=== PATIENT | male | born 1945 | race Caucasian/White ===

== ENCOUNTER → 2024-05-22 11:38 | Outpatient (REF) | payer BC, SELFPAY ==
[2024-05-24 22:14] LABS: PSA, Ultrasensitive 4.95 ng/mL (0.00-4.00)
== END ==
LOC: OLABWIL 11:38
PROVIDERS: ATTENDING PHYSICIAN Specialist
DX: C61 Malignant neoplasm of prostate (principal)
CPT/HCPCS: 36415; 84153

== ENCOUNTER → 2024-11-20 11:14 | Outpatient (REF) | payer BC, SELFPAY ==
[2024-11-20 12:30] LABS: PSA, Total - Diagnostic 27.70 ng/ml (0.0-4.0)
== END ==
LOC: OLABWIL 11:14
PROVIDERS: ATTENDING PHYSICIAN Specialist
DX: C61 Malignant neoplasm of prostate (principal)
CPT/HCPCS: 36415; 84153

== ENCOUNTER 2024-12-26 14:26 | Inpatient (IN) | payer MEDICARE, BC, SELFPAY ==
[2024-12-26] VITALS (9 sets, daily range): BP systolic 130–169; BP diastolic 65–93; BMI 33.1; BMI 31.1
--- NOTE | 2024-12-26 07:34 | ED.GENMED ---
History of Present Illness
General
Chief Complaint: Abdominal Pain
Time Seen by Provider: 12/26/24 07:10
History of Present Illness
History of Present Illness:
Patient is a 79-year-old man with history of hypertension, umbilical hernia presenting to the emergency department abdominal pain. Patient states that 5 days ago he developed nausea vomiting. Did resolve 2 days ago but then yesterday came back.
Since then he is also had right lower quad abdominal pain. He does have an umbilical hernia. He has never seen surgery regarding it. He does state that soft and reducible when he lies flat. No skin changes overlying the hernia. He denies any
fevers chills. His last bowel movement was yesterday. He has not passed gas since yesterday. No prior abdominal surgeries. No urinary symptoms. No back pain. No chest pain.
Phy Exam
Physical Exam
Physical Exam:
GENERAL: in no acute distress
HEENT: normocephalic, extraocular movements intact, moist oral mucosa
NECK: normal inspection
RESPIRATORY: no respiratory distress, clear to auscultation bilaterally
CARDIOVASCULAR: regular rate and rhythm
ABDOMEN/: Distended, diffusely tender, no rebound or guarding, soft hernia
EXTREMITIES: non-tender, no edema/swelling
NEUROLOGIC: awake and alert, moves all extremities
SKIN: warm
Course
Orders/Labs/Results
Orders:
Orders
12/26/24 07:33
0.9% Sodium Chloride 1000 ml [Nss] 1,000 ml IV BOLUS
Ketorolac [Toradol] 15 mg IV NOW STA
Ondansetron Injectable [Zofran] 4 mg IV NOW STA
12/26/24 07:34
CT Abd/pelvis W Iv Cont Urgent
Comment:
Reason For Exam: abdominal pain, hernia,
12/26/24 07:43
Complete Blood Count/With Diff Urgent
Comprehensive Metabolic Panel Urgent
Lipase Urgent
12/26/24 09:13
Morphine Sulfate 2 mg IV NOW STA
US Abdomen Limited Urgent
Comment:
Reason For Exam: RUQ
12/26/24 09:14
CR Abdomen - 1 View Urgent
Comment:
Reason For Exam: upright eval free air
12/26/24 10:35
Urinalysis Reflex To Culture Urgent
Date Specimen was Collected: 12/26/24
Time Specimen was Collected: 10:34
Urine Microscopic Reflex Cult Urgent
Abnormal Lab Results
12/26/24 12/26/24
07:43 10:35
RBC 4.26 L 10^6/uL
(4.70-6.10)
Hgb 12.5 L g/dL
(13.0-18.0)
Hct 37.6 L %
(39.0-52.0)
Absolute Lymphs (auto) 1.0 L 10^3/uL
(1.2-3.4)
Absolute Monos (auto) 0.7 H 10^3/uL
(0.1-0.6)
Lymphocytes % 13.8 L %
(20.5-51.1)
Monocytes % 9.8 H %
(1.7-9.3)
BUN 31 H mg/dl
(9-20)
Creatinine 1.6 H mg/dL
(0.7-1.3)
Glucose 144 H mg/dl
(70-99)
Lipase 21 L U/L
(23-300)
Urine Albumin (Reflex) 1+ A
(Neg - Trace)
12/26/24 07:43
12/26/24 07:43
Vital Signs
Initial and Last Documented VS:
Initial Vital Signs
Pulse Resp
79 32
12/26/24 07:12 12/26/24 07:12
Last Documented Vital Signs
Temp Pulse Resp BP Pulse Ox
97.6 F 92 29 169/83 98
12/26/24 07:14 12/26/24 10:45 12/26/24 10:45 12/26/24 10:31 12/26/24 07:35
MDM/Problems Addressed
Differential Diagnosis Includes:
Patient is a 79-year-old man presenting to the emergency department abdominal pain nausea vomiting and now not passing any gas or having a bowel movement over the past day. On arrival vitals unremarkable exam does show a distended abdomen that is
diffusely tender without any rebound or guarding. He does have a large hernia. Concern for acute abdomen given patient's history and exam could also be biliary pathology or pancreatitis. Will proceed with blood work. Will give fluids and pain
control. Will order x-ray to evaluate for any free air while we await CT scan
*Pulse Oximetry
SaO2: 98
Oxygen Mode of Delivery: Room air
Patient hypoxic: no
*Critical Care Note
Total Time (30-74mins, 75-104mins- exclusive of procedures): Not Applicable
Update Note
Update Note:
Patient was taken to CT scan so x-ray was discontinued. Per my interpretation he does have gallbladder wall thickening. I did receive a critical call from radiology that states the patient does have acute cholecystitis. Will discuss with general
surgery.
Discussed with general surgery who recommended ultrasound. Ultrasound with indeterminate gallbladder wall thickening. I did discuss with Dr. Alvarado from surgery who evaluated patient. Recommended admission to the hospitalist with MRCP
ED Attending Note
-
Portions of this chart may have been created with voice recognition software.� Occasional wrong word or��sound alike� substitutions may have occurred due to the inherent limitations of voice recognition software.
Discharge Plan
Departure
Patient Disposition: Admit
Date of Disposition: 12/26/24
Time of Disposition: 12:36
Presentation/result/management discussed w/ accepting MD/DO: Hospitalist
Discharge Problem:
Abdominal pain
Prescriptions:
No Action
doxazosin 2 MG tablet
2 mg PO DAILY
dutasteride [Avodart] 0.5 MG capsule
0.5 mg PO DAILY
loperamide 2 MG capsule
2 mg PO Q6HPRN PRN (Reason: DIARRHEA)
sennosides [senna] 1 TABLET tablet
2 tab PO BID 0RF
acetaminophen 325 MG tablet
650 mg PO Q4HWA 0RF
aspirin 325 MG tablet
325 mg PO DAILY Qty: 28 0RF
Rx Instructions:
Take daily x4 weeks for blood clot prevention
magnesium hydroxide 30 ML suspension
30 ml PO DAILYPRN PRN (Reason: constipation) 0RF
docusate sodium 100 MG capsule
100 mg PO BID 0RF
oxycodone 5 MG tablet
5 mg PO Q4HPRN PRN (Reason: moderate-severe pain) Qty: 12 0RF
Rx Instructions:
1 tab moderate pain or 2 if pain severe
Dx total joint replacement
ongoing therapy
celecoxib 200 MG capsule
200 mg PO DAILY Qty: 14 0RF
Rx Instructions:
Take with food.
Do not take within 2 hours of Aspirin.
famotidine 20 MG tablet
20 mg PO HS Qty: 14 0RF
Rx Instructions:
Take nightly while on Celebrex.
quinapril [Accupril] 10 MG tablet
10 mg PO HS Qty: 0 0RF
Rx Instructions:
Hold if systolic blood pressure <130 while on Oxycodone
cholecalciferol (vitamin D3) [Vitamin D3] 50 MCG capsule
2,000 unit PO DAILY Qty: 30 0RF
polyethylene glycol 3350 17 GRAMS powder in packet
17 grams PO DAILY Qty: 30 0RF
levothyroxine 25 MCG tablet
25 mcg PO DAILY Qty: 30 0RF
Rx Instructions:
New medication for newly diagnosed hypothyroidism
Referrals:
Topkis,Sinan L., DO [Family Provider, Family Practice]
Interventions
Interventions:
*Risk Screen - Suicide Last Done: 12/26/24 08:15
*General Assessment Last Done: 12/26/24 07:14
*Neglect/Abuse Screening Last Done: 12/26/24 07:14
*ED- Fall Risk Assessment Last Done: 12/26/24 07:14
*ED COVID-19 Vaccine History Last Done: 12/26/24 07:14
*ED Influenza Vaccine History Last Done: 12/26/24 07:14
HT-Ewdzso-Ggekntyjay Assessment Last Done: 12/26/24 07:32
Discharge Date and Time
Print Language: SYRIAN
[2024-12-26] MEDS: NSS 1000 IV ×2 (07:37→14:06)
[2024-12-26] MEDS: TORADOL 15 MG IV (07:37)
[2024-12-26] MEDS: ZOFRAN 4 MG IV (07:37)
[2024-12-26 07:56] LABS: Hematocrit 37.6 % (39.0-52.0); Hemoglobin 12.5 g/dL (13.0-18.0); Mean Corp Hgb Conc. 33.2 g/dL (33.0-37.0); Mean Corpuscular Volume 88.3 fL (80.0-94.0); Nucleated Red Blood Cells % 0 % (-); Platelet Count 188 10^3/uL (130-400); Red Cell Dist. Width 12.6 % (11.5-14.5)
[2024-12-26 08:11] LABS: ALT (SGPT) 17 U/L (0-50); AST (SGOT) 20 U/L (17-59); Albumin 4.2 g/dl (3.5-5.0); Alkaline Phosphatase 78 U/L (38-126); Blood Urea Nitrogen 31 mg/dl (9-20); Calcium 9.0 mg/dl (8.4-10.2); Carbon Dioxide 23 mmol/L (22-30); Chloride 103 mmol/L (98-107); Estimated Creatinine Clearance 41 ml/min; Glucose 144 mg/dl (70-99); Lipase 21 U/L (23-300); Potassium 5.0 mmol/L (3.5-5.1); Sodium 135 mmol/L (135-145); Total Protein 7.1 g/dl (6.3-8.2); eGFR 43.29
[2024-12-26] MEDS: MORPHINE SULFATE 2 MG IV ×3 (09:18→23:51)
[2024-12-26 10:48] LABS: Urine Character Clear (Clear)
[2024-12-26 11:16] LABS: Urine Red Blood Cell 0-2 /HPF (0-2); Urine White Cell 0-2 /HPF (0-5)
--- NOTE | 2024-12-26 12:14 | CON.GS ---
Consultation
-
Date/Time Consultation Performed: 12/26/24
Requesting Provider: Tushar
Performing Provider: Venkatesh
Reason for Consultation: Abd pain
Medical History
-
Chief Complaint: Abd pain
History of Present Illness:
79M with acute onset n/v that began 4 days ago. He was visiting family in [place] on Tuesday and ate a large amount of pizza and chicken nuggets which is unusual for him. Tuesday evening he began vomiting. He did not have pain at that time. The
vomiting subsided but began again Tuesday night and continued into Tuesday and Tuesday. he began to have migratory abd pain that was on the left, then the right, then suprapubic, then epigastric with radiation to his neck. He had a normal BM
yesterday. His pain is presently improved. He never had an episode like this before that he can recall.
Past Medical History
Past Medical History: GERD, HTN and Hypothyroidism
Past Surgical History: Reviewed & Noncontributory
Social History
Tobacco: Non-Smoker
Alcohol: None
Drug: None
Living: Assisted Living
Family History
Family History: Reviewed & Noncontributory
Allergies / Home Medications
Allergy/AdvReac Type Severity Reaction Status Date / Time
amoxicillin (From Augmentin) AdvReac Nausea / Verified 04/13/20 21:02
Vomiting
clavulanic acid (From AdvReac Nausea / Verified 04/13/20 21:02
Augmentin) Vomiting
�Medication �Instructions �Recorded �Confirmed �Type
doxazosin 2 mg tablet 2 mg PO DAILY Blood pressure 04/13/20 04/13/20 History
dutasteride 0.5 mg capsule 0.5 mg PO DAILY Urinary issue 04/13/20 04/13/20 History
(Avodart)
loperamide 2 mg capsule 2 mg PO Q6HPRN PRN DIARRHEA 04/13/20 04/13/20 History
acetaminophen 325 mg tablet 650 mg (2 x 325 mg) PO Q4HWA 04/15/20 Rx
aspirin 325 mg tablet 325 mg PO DAILY #28 tabs 04/15/20 Rx
celecoxib 200 mg capsule 200 mg PO DAILY #14 caps 04/15/20 Rx
cholecalciferol (vitamin D3) 50 2,000 unit PO DAILY #30 caps 04/15/20 Rx
mcg (2,000 unit) capsule (Vitamin
D3)
docusate sodium 100 mg capsule 100 mg PO BID 04/15/20 Rx
famotidine 20 mg tablet 20 mg PO HS #14 tabs 04/15/20 Rx
levothyroxine 25 mcg tablet 25 mcg PO DAILY #30 tabs 04/15/20 Rx
magnesium hydroxide 400 mg/5 mL 30 ml PO DAILYPRN PRN constipation 04/15/20 Rx
oral suspension
oxycodone 5 mg tablet 5 mg PO Q4HPRN PRN moderate-severe 04/15/20 Rx
pain #12 tabs
polyethylene glycol 3350 17 gram 17 grams PO DAILY #30 packets 04/15/20 Rx
oral powder packet
quinapril 10 mg tablet (Accupril) 10 mg PO HS Blood pressure ##0 04/15/20 04/13/20 Rx
sennosides 8.6 mg tablet (senna) 2 tab PO BID 04/15/20 Rx
Review of Systems
-
A 10 point review of systems was completed, and was negative except as per HPI.
Physical Exam
Vital Signs
Temp Pulse Resp BP Pulse Ox
97.6 F 92 29 169/83 98
12/26/24 07:14 12/26/24 10:45 12/26/24 10:45 12/26/24 10:31 12/26/24 07:35
12/25/24 12/26/24 12/27/24
06:59 06:59 06:59
Actual Weight 95.7 kg
Body Mass Index (BMI) 33.1
Lab Results
12/26/24 07:43
12/26/24 07:43
WBC 7.5 10^3/uL (4.8-10.8) 12/26/24 07:43
Hgb 12.5 g/dL (13.0-18.0) L 12/26/24 07:43
Hct 37.6 % (39.0-52.0) L 12/26/24 07:43
Plt Count 188 10^3/uL (130-400) 12/26/24 07:43
Abs Immat Gran (auto) 0.0 10^3/uL (0-0.05) 12/26/24 07:43
Neutrophils % 75.2 % (42.2-75.2) 12/26/24 07:43
Physical Exam
General: Well Developed, Well Nourished and No Apparent Distress
HEENT: Normocephalic and Anicteric
GI: Soft, Tender (dffusely tender with focal ttp at right hemiabdomen, epigastrium, and left lower quadrant), Distended and Other (reducible umbilical hernia, tender with reduction)
Skin: Warm and Dry
Neuro: AO x 3
Psych: Calm
Data Reviewed
-
CT Scan: Image Personally Visualized and interpreted, Report Reviewed by me, Discussed with Physician and Discussed with Patient
Ultrasound: Image Personally Visualized and interpreted, Report Reviewed by me, Discussed with Physician and Discussed with Patient
Labs: Labs Reviewed by me, Discussed with Physician and Discussed with Patient
Assessment / Plan
-
79M with migratory abd pain of unclear etiology
AFVSS, abd ttp and distention, tenderness is nonfocal but seems to be greatest to right hemiabdomen
Reducible umbilical, tender on reduction, minor erythema of overlying skin
No leukocytosis, no shift, LFTs WNL
US with GBWT, no stones, no ductal dilation
CT with GBWT, mild-mod free fluid (perihepatic and RLQ), sb feces sign, decompressed distal sb loops, stool and air in colon, right colon appears distended up to 6.5cm, appendix not visualized; CBD appears dilated on my interpretation to 11mm, ? of
stone vs soft tissue mass at ampulla
Plan:
Admit to Hospitalist
Check MRCP
If no biliary findings would consider PO contrast CT tomorrow
Trend CBC/LFTs
Can hold abx for now unless fever/leukocytosis other signs of infection develop
GS will follow
--- NOTE | 2024-12-26 12:46 | W.PN.UPDATE ---
Update Note
Progress Note Update
This is an addendum to H&P written by resident physician Dr. Elicia Barron
I saw and examined the patient.
The ACCOUNT MANAGER RELIEF's note was reviewed and I agree with the note.
Comment:
Mr. Noel Huerta is a 79 yo man with hx GERD, hypertension, hypothyroidism who presents to the ER with nausea/vomiting that began 4 days prior followed by migratory abdominal pain.
Triage VS: T 97.6, P 92, RR 29, BP 169/83, SpO2 98%
On exam patient is AAO x 3, + umbilical hernia reducible; right sided abdominal tenderness, no rebound or guarding; bilateral LE pedal edema (chronic)
LABS: WBC 7.5, Hg 12.5, PLT 188, Na 135, K+ 5.0, CO2 23, BUN 31, Cr 1.6, Glucose 144, T. Bili 0.9, AST 20, ALT 17, Alk Phos 78, Lipase 21
Abdomen/Pelvis CT
IMPRESSION:
Suspected gallbladder wall thickening and pericholecystic stranding. No biliary tract dilatation. Findings could represent acute cholecystitis. Recommend Abdominal ultrasound for more complete evaluation. Findings discussed by telephone with .
Tushar at 0902 hours on December 26, 2024.
Small volume free fluid, as noted above.
Moderate size predominantly fat only containing umbilical hernia.
Additional nonurgent findings, as described including hiatal hernia.
Abdomen US
IMPRESSION:
No findings to confirm cholelithiasis or biliary tract dilatation. Negative sonographic Monroe's sign.
Gallbladder wall thickening, indeterminate. Question association with small volume free fluid seen on concurrent CT.
Abdomen X-Ray
IMPRESSION:
No free air,
Abdominal Pain
-differential includes cholecystitis versus gastroenteritis versus constipation versus MSK pain/cramping post vomiting versus other
-given right-sided abdominal pain with finding of gallbladder wall inflammation; will start antibiotics for possible cholecystitis while awaiting further studies. Amoxicillin allergy; will start IV Ceftriaxone/Flagyl
-appreciate GS consult, will order MRI/ MRCP
-NPO pre-MRI then can start clears
-IVF
-consider more aggressive bowel regimen if above unrevealing
GLO
-suspect pre-renal in setting of vomiting
-NS @ 79
-hold [employer]IC Lisinopril/ Lasix
BPH
-[employer]CH[employer]IC Dutasteride, Doxazosin
Essential HTN
-hold [employer] Lisinopril as above
-E[employer]CH[employer]IC Doxazosin
Hx Prostate CA
-continue [employer]IC Bicalutamide
DVT PPx SCD
--- NOTE | 2024-12-26 12:47 | HPS.HSE ---
Family Physician
-
Family Physician: Sinan Horowitz
Chief Complaint
-
Abdominal pain
History of Present Illness
79-year-old male from [facility] with past medical history of GERD, hypertension, umbilical hernia, hypothyroidism, prostate cancer (on hormone therapy, diagnosed in 2017) BPH presenting to the ER reporting abdominal pain and
nausea/vomiting that started 4 days ago. Patient reports that he had nausea/vomiting 4 days ago after eating a large amount of pizza/chicken nuggets which is unusual for him. Nausea/vomiting subsided but it recurred in a couple of days which has
worsened until today. Since then he also had right lower quadrant abdominal pain, suprapubic and epigastric pain with radiation to his neck. Patient also has umbilical hernia for some time but he did not see any surgeon , reports it is reducible
when he lays flat. Patient denies any fever/chills, hematemesis, melena, hematochezia. His last bowel movement was yesterday, and he has not passed gas since then. No prior history of abdominal surgeries.
ED course�at presentation BP 157/77, GA 79, afebrile. WBC�7.5, hemoglobin�12.5, BUN/creatinine�31/1.6, glucose 144, normal ALT/AST. X-ray abdomen with no free air.
CT abdomen/pelvis�suspected gallbladder wall thickening and pericholecystic stranding, no biliary tract dilation possible cholecystitis, but recommended abdominal ultrasound.
Ultrasound abdomen with no evidence of cholelithiasis/biliary tract dilation. Negative sonographic Monroe sign.
Medical History
Past Medical History
Past Medical History: Reports Other (GERD, hypertension, umbilical hernia, hypothyroidism, prostate cancer, BPH )
Past Surgical History: Reports Tonsilectomy
Social History
Tobacco: Former Smoker (Quit in 1968)
Alcohol: None
Drug: None
Personal:
Living: Other ([facility])
Employment: Retired
Family History
Family History: Not pertinent
Allergies / Home Medications
Allergies reflects when Allergies were last updated in [facility].
Home Medications with original date entered in [facility]
Allergy/Medication List:
Allergies
Allergy/AdvReac Type Severity Reaction Status Date / Time
amoxicillin (From Augmentin) AdvReac Nausea / Verified 04/13/20 21:02
Vomiting
clavulanic acid (From AdvReac Nausea / Verified 04/13/20 21:02
Augmentin) Vomiting
Home Medications
doxazosin 2 mg tablet 2 mg PO HS Blood pressure 04/13/20
dutasteride 0.5 mg capsule (Avodart) 0.5 mg PO HS Urinary issue 04/13/20
loperamide 2 mg capsule 2 mg PO Q6HPRN PRN DIARRHEA 04/13/20
acetaminophen 325 mg tablet 650 mg PO Q4HPRN PRN mild pain 12/26/24
aspirin 325 mg tablet 325 mg PO HS 12/26/24
bicalutamide 50 mg tablet 50 mg PO HS prostate issue 12/26/24
cyclosporine 0.05 % eye drops in a dropperette 1 drp BOTH EYES BID dry eye 12/26/24
furosemide 20 mg tablet 20 mg PO DAILY@1400 12/26/24
lisinopril 10 mg tablet 10 mg PO HS 12/26/24
Review of Systems
-
A 12 point ROS was completed and negative except as noted: Yes
Physical Exam
Vital Signs
Vital Signs
Temp Pulse Resp BP Pulse Ox
97.6 F 92 29 169/83 98
12/26/24 07:14 12/26/24 10:45 12/26/24 10:45 12/26/24 10:31 12/26/24 07:35
Physical Exam
General: No Apparent Distress
HEENT: NormoCephalic, Atraumatic and Other (Very dry mucous membranes)
Respiratory: Clear
Cardiac: S1/S2 and Regular Rhythm
GI: Soft, Tender (Diffuse tenderness, Monroe sign negative, no guarding/rigidity.), Distended and Other (Reducible umbilical hernia)
Musculoskeletal: Edema, Left Lower Extremity (2+, LLE >RLE) and Edema, Right Lower Extremity
Skin: Warm and Dry
Neuro: Awake, Alert, Oriented, AO x 3 and Nonfocal/grossly intact
Psych: Calm
Laboratory Results
-
12/26/24 07:43
12/26/24 07:43
Laboratory Results
Total Bilirubin 0.9 mg/dl (0.2-1.3) 12/26/24 07:43
AST 20 U/L (17-59) 12/26/24 07:43
ALT 17 U/L (0-50) 12/26/24 07:43
Alkaline Phosphatase 78 U/L (38-126) 12/26/24 07:43
Lipase 21 U/L (23-300) L 12/26/24 07:43
Impression/Plan
-
IMPRESSION:
79-year-old male from [facility] living with past medical history of GERD, hypertension, umbilical hernia, hypothyroidism, prostate cancer (on hormone therapy, diagnosed in 2017) BPH presenting to the ER reporting abdominal pain and
nausea/vomiting.
PLAN:
#Diffuse abdominal imaging
#Nausea/vomiting
Etiology unclear until
Likely due to cholecystitis vs gastroenteritis
No white count, patient is afebrile
Normal LFTs
X-ray with no free air
CT abdomen/pelvis report�Suspected gallbladder wall thickening and pericholecystic stranding. No biliary tract dilatation. Findings could represent acute cholecystitis. Recommend Abdominal ultrasound
Ultrasound suspicious for cholecystitis???, Inconclusive
Surgery on board
Recommended MRCP, ordered
Start IV fluids
Adequate pain control with morphine, acetaminophen
Start antibiotics ceftriaxone, Flagyl
Clears for now, pending MRCP
Will hold loperamide
#GLO
Likely prerenal, due to dehydration
Will start IV fluids
Monitor BMP
Will hold off lisinopril, furosemide
#Essential hypertension
Will continue doxazosin
Will hold lisinopril, furosemide for GLO
#Prostate cancer
Continue bicalutamide
#BPH
Continue dutasteride
#Continue aspirin 81 mg
DVT prophylaxis heparin subcu
Diet�clears, pending MRCP
Full code.
--- NOTE | 2024-12-26 13:37 | CM ---
Chart reviewed and spoke with patient at ED bedside
Spoke with dtr Lakeisha on the phone
GRACIE Lives alone in [facility]
Has walker, cane and w/c
Can cook but has used meal service there
4 YEARS ago
5 grown kids
Son Mehul is a nurse at [employer] and michael come later today with patient's phone
Lakeisha lives in [place] but has 2 little kids 1 yo and 3 yo
Daria lives in [place] [phone]
Another KID IN [place]
1 kid in [place]
All very supportive
PCP Dr. Sinan Horowitz
RX plan yes
Pharmacy [facility] in [facility]
no hx of VN nor SNF
DCP is to go home with services if indicated
Family can provide transportation
CM will continue to follow up for any dcp needs
[2024-12-26] MEDS: HEPARIN 5000 UNITS SC ×2 (17:13→23:49)
--- NOTE | 2024-12-26 18:08 | PTCARENOTE ---
Received pt from ED. Pt stand/pivot to bed with assist x2 w/ RW. Pt in 09/23 abdominal pain with abdominal muscle cramping. PRN pain medication administered, see MAR. AAOx3. VSS. NS @ 80ml/hr in L FA. Educated pt on use of call hermosillo, safe environment
maintained. Pt has no further complaints at this time.
[2024-12-26] MEDS: FLAGYL 500 MG 100 IV (18:28)
[2024-12-26] MEDS: STERILE WATER FOR INJECTION 10 ML IV (18:28)
[2024-12-26] MEDS: ROCEPHIN 1000 MG IV (18:28)
[2024-12-26] MEDS: RESTASIS 0.05% OPHTHALMIC EMULSION 1 DROPS BOTH EYES (21:16)
[2024-12-26] MEDS: LOW STRENGTH ASPIRIN 81 MG PO (21:18)
[2024-12-26] MEDS: PROSCAR 5 MG PO (21:18)
[2024-12-26] MEDS: CASODEX 50 MG PO (21:18)
[2024-12-26] MEDS: CARDURA 2 MG PO (21:21)
[2024-12-27] VITALS (19 sets, daily range): BP systolic 10–147; BP diastolic 51–99; PULSE 2–106; BMI 32.3
[2024-12-27] MEDS: FLAGYL 500 MG 100 IV ×3 (02:11→17:23)
[2024-12-27] MEDS: NSS 1000 IV ×2 (02:13→16:37)
[2024-12-27] MEDS: DILAUDID 0.25 MG IV (02:53)
--- NOTE | 2024-12-27 07:27 | CON.GI ---
Consultation
-
Date/Time Consultation Requested: 12/27/24629
Date/Time Consultation Performed: 12/27/24929
Requesting Provider: Heaven Tinoco MD
Performing Provider: AURELIO Turner, Mari Hudson MD
Reason for Consultation: abdominal pain
Medical History
Chief Complaint / HPI
History of Present Illness:
Pt is an 79yo with hx prostate CA on hormonal therapy, hypothyroidism, GERD, HTN, hip replacement, tonsillectomy, umbilical hernia presents to ER with abdominal pain with nausea and vomiting. On admission noted with hbg 12.5, normal LFT's and
lipase, WBC rise to 11,400 after admission. He has several imaging studies since admission with CT with IV contrast with GBWT and fluid possible acute cholecystitis moderate fat containing umbilical hernia, limited US with no gallstones and
indeterminate thickening, abdominal Xray no free air, and MR abdomen with GBWT and edema centered in region of gallbladder, small amount of fluid surrounding liver, no biliary dilatation, 2 duodenal diverticulum in 2nd portion adjacent to distal
CBD, numerous pancreatic cystic lesion largest 2.2 cm.
In review with patient he admits to onset of RUQ pain was initially 4/10 then 6/10. He states he still has some upper pain with palpation but also noted low also with some lower abdominal pain. He also admits to nausea and vomiting post
prandial several times over last few days with increased GERD. Prior to onset of symptoms he also admits to irregular bowel. He will have loose stool with several stools in a day with use of immodium then have constiaption for several days. He also
admits to chronic distention. He denies rectal bleeding. hx colonoscopy per pt recall 5 years ago with polyps. + occasional NSAID use.
Past Medical History
Past Medical History: Cancer (prostate CA), GERD, HTN, Hypothyroidism and Other (umbilical hernia )
Past Surgical History: Orthopedic (hip replacement ) and Tonsilectomy
Social History
Tobacco: Former Smoker
Alcohol: Other (social years ago )
Drug: None
Personal:
Living: Alone
Employment: Retired
Family History
Family History: Reviewed & Not Pertinent
Allergies / Home Medications
Allergy/AdvReac Type Severity Reaction Status Date / Time
amoxicillin (From Augmentin) Allergy Nausea / Verified 12/26/24 16:27
Vomiting
clavulanic acid (From Allergy Nausea / Verified 12/26/24 16:27
Augmentin) Vomiting
�Medication �Instructions �Recorded
doxazosin 2 mg tablet 2 mg PO HS Blood pressure 04/13/20
dutasteride 0.5 mg capsule 0.5 mg PO HS Urinary issue 04/13/20
(Avodart)
loperamide 2 mg capsule 2 mg PO Q6HPRN PRN DIARRHEA 04/13/20
acetaminophen 325 mg tablet 650 mg PO Q4HPRN PRN mild pain 12/26/24
aspirin 325 mg tablet 325 mg PO HS 12/26/24
bicalutamide 50 mg tablet 50 mg PO HS prostate issue 12/26/24
cyclosporine 0.05 % eye drops in a 1 drp BOTH EYES BID dry eye 12/26/24
dropperette
furosemide 20 mg tablet 20 mg PO DAILY@1400 12/26/24
lisinopril 10 mg tablet 10 mg PO HS 12/26/24
Review of Systems
-
History Source: Patient
Constitutional: Reports Weight Loss (few lbs with vomiting )
EENT: Reports No Symptoms
Respiratory: Reports No Symptoms
Cardiac: Reports No Symptoms
Abdomen/GI: Reports Abdominal Pain, Nausea, Vomiting, Diarrhea and Constipated
: Reports No Symptoms
Musculoskeletal: Reports No Symptoms
Skin: Reports No Symptoms
Neurological: Reports Weakness
Endocrine: Reports No Symptoms
Hematologic/Lymphatic: Reports No Symptoms
Vital Signs
Temp Pulse Resp BP Pulse Ox
97.7 F 96 18 138/66 95
12/26/24 23:24 12/27/24 02:53 12/26/24 23:24 12/27/24 02:53 12/26/24 23:24
Physical Exam
Exam
General: Well Developed, Well Nourished and No Apparent Distress
HEENT: Normocephalic and Anicteric
Respiratory: Clear
Cardiac: Regular Rhythm
GI: Tender (some RUQ and lower abdominal pain), Distended (with mild guarding ) and Other (umbilical hernia with note discoloration ? bruising )
Musculoskeletal: No Clubbing and No Cyanosis
Skin: Warm and Dry
Neuro: Awake, Alert and AO x 3
Psych: Calm
Results
WBC 7.5 10^3/uL (4.8-10.8) 12/26/24 07:43
Hgb 12.5 g/dL (13.0-18.0) L 12/26/24 07:43
Hct 37.6 % (39.0-52.0) L 12/26/24 07:43
MCV 88.3 fL (80.0-94.0) 12/26/24 07:43
Plt Count 188 10^3/uL (130-400) 12/26/24 07:43
Absolute Neuts (auto) 5.7 10^3/uL (1.4-6.5) 12/26/24 07:43
Sodium 135 mmol/L (135-145) 12/26/24 07:43
Potassium 5.0 mmol/L (3.5-5.1) 12/26/24 07:43
Chloride 103 mmol/L (98-107) 12/26/24 07:43
Carbon Dioxide 23 mmol/L (22-30) 12/26/24 07:43
BUN 31 mg/dl (9-20) H 12/26/24 07:43
Creatinine 1.6 mg/dL (0.7-1.3) H 12/26/24 07:43
Calcium 9.0 mg/dl (8.4-10.2) 12/26/24 07:43
Total Bilirubin 0.9 mg/dl (0.2-1.3) 12/26/24 07:43
AST 20 U/L (17-59) 12/26/24 07:43
ALT 17 U/L (0-50) 12/26/24 07:43
Alkaline Phosphatase 78 U/L (38-126) 12/26/24 07:43
Lipase 21 U/L (23-300) L 12/26/24 07:43
Diagnostic Image Results:
12/26/24 CT Abd/pelvis W Iv Cont
Suspected gallbladder wall thickening and pericholecystic stranding. No biliary tract dilatation. Findings could represent acute cholecystitis. Recommend Abdominal ultrasound for more complete evaluation. Findings discussed by telephone with
Tushar at 0902 hours on December 26, 2024.
Small volume free fluid, as noted above.
Moderate size predominantly fat only containing umbilical hernia. accessory spleen some limitation with hip artifact
12/26/24 US limited abdomen
No findings to confirm cholelithiasis or biliary tract dilatation. Negative sonographic Monroe's sign.
Gallbladder wall thickening, indeterminate. Question association with small volume free fluid seen on concurrent CT.
12/26/24 abdomen X ray
No free air
12/27/24 MR Abdomen Without Contrast
No gallstones are identified.
Gallbladder wall thickening with significant edema within the fat in the right upper quadrant, which appears to be centered in the region of the gallbladder. In the correct clinical setting, these findings are suggestive of acute cholecystitis.
There is a small to moderate amount of fluid surrounding the liver in the right upper quadrant.
If further imaging evaluation is desired, consideration for hepatobiliary scan.
No evidence for biliary ductal dilation. No evidence for bile duct calculus.
There are 2 duodenal diverticula arising from the second portion of the duodenum, and adjacent to the distal common bile duct.
Numerous pancreatic cystic lesions, with the largest having diameter of 2.2 cm. Based on recommendations from the [employer], MR follow-up is recommended with initial timeframe of 2 years. Management of incidental pancreatic
cysts: A white paper of the ACR incidental findings committee. August 2016. Volume 14, issues 7, pages 911-923
Prior GI Procedures:
EGD: none
Colonoscopy: last 5 years ago + polyps did not recall where completed
Assessment / Plan
-
Pt is an 79yo with hx prostate CA on hormonal therapy , hypothyroidism, GERD, HTN, hip replacement, tonsillectomy, umbilical hernia presents to ER with abdominal pain with nausea and vomiting. On admission noted with hbg 12.5, normal LFT's and
lipase, WBC rise to 11,400 after admission. He has several imaging studies since admission with CT with IV contrast with GBWT and fluid possible acute cholecystitis moderate fat containing umbilical hernia, limited US with no gallstones and
indeterminate thickening, abdominal Xray no free air, and MR abdomen with GBWT and edema centered in region of gallbladder, small amount of fluid surrounding liver, no biliary dilatation, 2 duodenal diverticulum in 2nd portion adjacent to distal
CBD, numerous pancreatic cystic lesion largest 2.2 cm. In review with patient he admits to onset of RUQ pain was initially 10 then 07/24. He states he still has some upper pain with palpation but also noted low also with some lower abdominal
pain. He also admits to nausea and vomiting post prandial several times over last few days with increased GERD. Prior to onset of symptoms he also admits to irregular bowel. He will have loose stool with several stools in a day with use of
immodium then have constiaption for several days. He also admits to chronic distention. He denies rectal bleeding. hx colonoscopy per pt recall 5 years ago with polyps. + occasional NSAID use.
-RUQ pain with nausea and vomiting
-Lower adominal pain
-abdominal distention
-umbilical hernia on exam
-imaging with gallbladder thickening
-duodenal diverticulm x 2 adjancent with CBD
-mild leukocytosis
-hx diarrhea/constipation alternating with use of Imodium
other med problems:
prostate CA on hormonal therapy , hypothyroidism, GERD, HTN, hip replacement, tonsillectomy
PLAN:
etiology of abdominal pain related to gallbladder distention, umbilical hernia, constipation vs other
reviewed with Dr. Nina plan for lap julio and hernia repair today
LFT's and lipase normal , no CBD stone per MRCP
NPO
IVF
monitor stool function post -op as has been using Imodium on a regular basis call GI with issues
with plan for surgery will sign off -- call back for any other issues
-
-
Thank you for consultation and allowing me to participate in the patient's care. Please call the consumer marketing manager GI physician during the after hours with any questions or concerns.
[2024-12-27 07:46] LABS: ALT (SGPT) 16 U/L (0-50); AST (SGOT) 20 U/L (17-59); Albumin 3.2 g/dl (3.5-5.0); Alkaline Phosphatase 62 U/L (38-126); Blood Urea Nitrogen 35 mg/dl (9-20); Calcium 8.3 mg/dl (8.4-10.2); Carbon Dioxide 24 mmol/L (22-30); Chloride 106 mmol/L (98-107); Estimated Creatinine Clearance 38 ml/min; Glucose 113 mg/dl (70-99); Potassium 4.9 mmol/L (3.5-5.1); Sodium 134 mmol/L (135-145); Total Protein 5.8 g/dl (6.3-8.2); eGFR 40.25
[2024-12-27] MEDS: RESTASIS 0.05% OPHTHALMIC EMULSION 1 DROPS BOTH EYES ×2 (08:24→20:14)
[2024-12-27] MEDS: HEPARIN 5000 UNITS SC (08:24)
[2024-12-27] MEDS: PROTONIX IV 40 MG IV (08:25)
[2024-12-27] MEDS: NSS (PRESERVATIVE FREE) 10 ML IV (08:26)
[2024-12-27] MEDS: DILAUDID 1 MG IV (08:38)
[2024-12-27 08:43] LABS: Hematocrit 34.6 % (39.0-52.0); Hemoglobin 11.3 g/dL (13.0-18.0); Mean Corp Hgb Conc. 32.7 g/dL (33.0-37.0); Mean Corpuscular Volume 92.5 fL (80.0-94.0); Platelet Count 155 10^3/uL (130-400); Red Cell Dist. Width 13.0 % (11.5-14.5)
--- NOTE | 2024-12-27 10:11 | W.PN.GS2 ---
Addendum entered and electronically signed by Gabriele Nina MD 12/27/24 10:36:
Patient seen and examined in follow-up with surgical HAND LACER. Agree with documented progress note.
Right upper quadrant pain improving but still noticeable.
Complains of pain in this umbilical hernia and lower abdominal cramping.
Imaging studies all reviewed. Radiographic signs highly suggestive of cholecystitis but no stones identified. No additional clear biliary abnormalities.
Fat-containing umbilical hernia.
Colon and small bowel viscera otherwise unremarkable.
Reviewed with patient indications for cholecystectomy which he is strongly in agreement to proceed with. I also offered HIDA imaging scan if he would prefer to attempt nonoperative management but he does not. Given his tenderness in his chronic
umbilical hernia we discussed simultaneous open repair, primary to help alleviate potential for ongoing symptoms. Anticipated operative procedure was fully reviewed in detail including the operative technique, pertinent surrounding anatomy,
alternative treatment options, benefits and risks such as but not limited to bleeding, infectious and wound related complications, iatrogenic injury to surrounding viscera. We discussed typical postoperative recovery pending operative findings
particularly as it relates to his older age and potential longer postoperative hospitalization and potential need for postoperative prison or PT/visiting nurse.
Any of the patient's concerns or questions were fully addressed and written informed consent was obtained.
I also updated the patient's son and confirmed today's operative plans which he is in agreement to proceed with as well.
Original Note:
Today's Communication / Plan
-
OR today
Assessment / Plan
-
79 yo male presenting from [facility] with n/v/right sided abdominal pain after a large fatty meal 4-5 days ago. N/V resolved but with ongoing pain to RUQ and suprapubic. Imaging with acute cholecystitis although no stones present. Fat containing
umbilical hernia present without bowel involvement. Unclear etiology of suprapubic pain but do believe that upper abdominal pain secondary to cholecystitis. Normal LFT's but with mild leukocytosis today. Afebrile. VSS.
Plan:
NPO for OR today for lap julio and umbilical hernia repair
Continue IV abx (rocephin, flagyl)
Analgesics as needed
Subjective Data
-
Date of Service: December 27, 2024
Pt seen and examined at bedside with Dr. Nina. Denies n/v. Reports pain primary to his right abdomen with tenderness but also notes spasms of pain to his lower pelvis. Denies acitve nausea.
Objective Data
-
Intake and Output
12/26/24 12/27/24 12/28/24
06:59 06:59 06:59
Intake Total 1010 / 1010
Output Total 400 / 400
Balance 610 / 610
Intake:
IV fluids (Total) 960 / 960
IV piggybacks 50 / 50
Output:
Urine, Voided 400 / 400
Other:
How many times incontinent 1
SMALL amount urine
Vital Signs
Temp Pulse Resp BP Pulse Ox
97.3 F 98 18 122/59 96
12/27/24 07:35 12/27/24 07:35 12/27/24 07:35 12/27/24 07:35 12/27/24 07:35
Lab Results
12/27/24 06:47
12/27/24 06:47
Calcium 8.3 mg/dl (8.4-10.2) L 12/27/24 06:47
Total Bilirubin 1.0 mg/dl (0.2-1.3) 12/27/24 06:47
AST 20 U/L (17-59) 12/27/24 06:47
ALT 16 U/L (0-50) 12/27/24 06:47
Alkaline Phosphatase 62 U/L (38-126) 12/27/24 06:47
Total Protein 5.8 g/dl (6.3-8.2) L 12/27/24 06:47
Albumin 3.2 g/dl (3.5-5.0) L 12/27/24 06:47
Physical Exam
-
NAD
ABD soft/rounded, obese, mild tenderness to RUQ and to umbilical hernia site, hernia soft.
--- NOTE | 2024-12-27 10:21 | W.PN.HOSP.TC ---
Today's Communication/Plan
-
.
Assessment / Plan
Assessment / Plan
Physical Exam
General: He is in pain, no respiratory distress
HEENT: Normocephalic and Anicteric. Dry MM
Respiratory: Clear
Cardiac: Regular Rhythm
GI: soft, distended, tender
Musculoskeletal: No Clubbing and No Cyanosis
Skin: Warm and Dry
Neuro: Awake, Alert and AO x
Psych: Calm
# acute cholecystitis.
Patient reports pain, he is uncomfortable
d/w surgery
Keep NPO, IVF, IV Abx, surgery today
Appreciate GI and surgery help
# hyponatremia
# GLO
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
c/w IVF
Monitor for retention
-hold ADDICTION SPECIALIST Lisinopril/ Lasix
BPH
-ADDICTION SPECIALIST Dutasteride, Doxazosin
Essential HTN
-hold ADDICTION SPECIALIST Lisinopril as GLO
-ADDICTION SPECIALIST Doxazosin
Hx Prostate CA
-continue ADDICTION SPECIALIST Bicalutamide
DVT PPx SCD
Total time spent to see the patient, examine the patient, review data and lab results, discuss treatment plan with patient, consultants, nursing staff around 55 minutes
Anticipated Discharge: > 48 hours
Subjective/Interval History
-
Date of Service: December 27, 2024
He is having abdominal pain
Objective Data
-
Labs:
Laboratory Results
12/27/24
06:47
WBC 11.4 H
Hgb 11.3 L
Hct 34.6 L
Plt Count 155
Sodium 134 L
Potassium 4.9
Chloride 106
Carbon Dioxide 24
BUN 35 H
Creatinine 1.7 H
Glucose 113 H
Calcium 8.3 L
Total Bilirubin 1.0
AST 20
ALT 16
Alkaline Phosphatase 62
Vital Signs:
Vital Signs
Temp Pulse Resp BP Pulse Ox
97.3 F 98 18 122/59 96
12/27/24 07:35 12/27/24 07:35 12/27/24 07:35 12/27/24 07:35 12/27/24 07:35
I&O
12/26/24 12/27/24 12/28/24
06:59 06:59 06:59
Intake Total 1010 / 1010
Output Total 400 / 400
Balance 610 / 610
--- NOTE | 2024-12-27 10:36 | W.SUR.PREOP ---
Pre-Operative Surgical Note
-
I have examined this patient prior to the performance of the scheduled procedure.
The patient's condition is unchanged from the time of the current History and
Physical and the patient is able to undergo the scheduled procedure.
[2024-12-27 11:19] LABS: Absolute Neutrophils -Man Diff 9.9 10^3/uL (1.4-6.5); Normal RBC Morphology Yes; Platelets Checked Yes; Total Cells Counted 100
--- NOTE | 2024-12-27 11:22 | CM ---
Pt scheduled for surgery today.
Pt lives at [facility].
Plan: Tentative - DCP is to go home with services if indicated. Family can provide transportation
CM to re-evaluate post-op
[2024-12-27 11:42] LABS: Toxic Granulation 2+
--- NOTE | 2024-12-27 14:28 | W.IMMPOSTOP ---
Addendum entered and electronically signed by Gabriele Nina MD 12/27/24 15:01:
[id number]
Original Note:
Surgical Immed Post Op Note
-
Primary Surgeon: Gabriele Nina MD
Assisting Surgeon: Mirza PERALES
Pre-op Diagnosis: Acalculous cholecystitis
Post-op Diagnosis: Perforated gangrenous acalculous cholecystitis
Generalized bile peritonitis
Ileus
Incarcerated umbilical hernia, 3 cm
Procedure Performed: Laparoscopic cholecystectomy
Laparoscopic abdominal washout with drain placement; Osiel drain x 3
Open primary repair incarcerated umbilical hernia, 3 cm
Anesthesia Type: GETA +0.25% Marcaine
Specimen / Cultures: Gallbladder/gallbladder tissue and bile for culture
Estimated Blood Loss: 40 mL
Complications: None immediate
Operative Findings: Gangrenous acalculous cholecystitis encased within acute inflammatory peel with perforation and generalized bile peritonitis. Bilious ascites and exudates throughout all 4 quadrants of the abdomen but predominantly right upper
and lower quadrant. Cystic duct identified with critical view and controlled with Endo GIN chávez 30 mm stapler. Gallbladder removed in its entirety. Hemostasis assured with monopolar cautery along the liver bed. Right upper quadrant, left upper
quadrant, perihepatic space, right lower quadrant and pelvis all irrigated out and areas of thick exudate suctioned. Umbilical hernia with 3 cm fascial defect closed primarily with #1 PDS STRATAFIX symmetric.
Drains: 19 Osiel x 3 right far lateral -perihepatic and subdiaphragmatic
Right midclavicular -gallbladder bed fossa under left lobe of the liver to the perisplenic subdiaphragmatic space
Supraumbilical -right lower quadrant and pelvis
Plan: Postop monitoring ICU level care; updated hospitalist as high risk for postoperative sepsis/SIRS response
N.p.o. and NG tube decompression for ileus
NANCY drains to bulb suction -expecting bilious output's given bilious ascites throughout abdominal cavity
Updated patient's son postoperatively via phone call.
[2024-12-27 16:10] LABS: B.E. - POC -5.3 mmol/L; Glucose - POC 172 mg/dl (70-99); HCO3 - POC 22 mmol/L (21-28); Hematocrit - POC 32 % PCV (42-52); Hemodilution- POC Yes; Hemoglobin Calculated - POC 10.7; Ionized Calcium - POC 1.15 mmol/L (1.15-1.33); Lactate - POC 2.02 mmol/L (0.36-0.75); O2 Saturation %Calculated-POC 95.3 % (94-98); PCO2 - POC 51 mmHg (35-48); PO2 - POC 91 mmHg (83-108); Potassium - POC 4.7 mmol/L (3.5-5.1); Sodium - POC 138 mmol/L (136-145); Specimen Type - POC Arterial; pH - POC 7.25 (7.35-7.45)
[2024-12-27] MEDS: SUBLIMAZE 50 MCG IV (16:43)
[2024-12-27] MEDS: VERSED 1 MG IV (16:44)
[2024-12-27 17:02] LABS: Glucose - Point of Care 154 mg/dl (70-99)
[2024-12-27 17:05] LABS: B.E. -8.0 mmol/L; HCO3 20.2 mmol/L (21-28); O2 Saturation % 94.0 % (94-98); PCO2 53 mmHg (35-48); PO2 72 mmHg (83-108)
[2024-12-27 17:16] LABS: INR 1.40; PT 17.6 Sec (11.4-14.6)
[2024-12-27 17:17] LABS: APTT 33.4 Sec (23.4-35.0)
[2024-12-27] MEDS: HEPARIN SC (17:22)
[2024-12-27] MEDS: ROCEPHIN 2000 MG IV (17:27)
[2024-12-27] MEDS: STERILE WATER FOR INJECTION 20 ML IV (17:27)
--- NOTE | 2024-12-27 18:01 | PTCARENOTE ---
Patient arrived from PACU on Bipap with RN & RT approx 1630. Patient opens eyes but does not follow commands. Immediately after moving patient into bed, pt became restless and attempting to pull at bipap tubing. Dr. Brar at bedside. Versed and
fentanyl given per the MAR. Pt able to relax and staff able to complete EKG. ABG drawn from A-line and sent. A-line flushed and zeroed, correlates to external BP cuff. Critical ABG reported to pantry chef. Bipap setting changed to 15/5. Lungs with
coarse rhonchi and slight wheeze. SCDs on. CXR done. NGT @ 55cm to LIWS; scant brown/dark green output in tubing. Abd dressing intact. NANCY x3 emptied serosanginous outputs. NSR/ST on telemetry. Cummings with low UO, dharmesh in color. IVF started. IV Abx
administered. Son(Mehul) at bedside and updated. Bed alarm set. Rounding frequently for safety.
--- NOTE | 2024-12-27 18:20 | CON.INTV ---
Consultation
Consultation Request
Date/Time Consultation Requested: 12/27/2024
Date/Time Consultation Performed: 12/27/2024
Requesting Provider: Dr. Tinoco
Performing Provider: Dr. Brar
Reason for Consultation: Post-op status/on BiPAP
Medical History
-
Chief Complaint: Nausea/vomiting + right sided abdominal pain
History of Present Illness:
79-year-old male with a past medical history of prostate cancer, BPH, elevated PSA, hypertension and obesity who presents with nausea/vomiting and right-sided abdominal pain. CT abdomen/pelvis showed suspected gallbladder wall thickening and
pericholecystic stranding. General surgery consulted who recommended MRCP. Abdominal ultrasound also on admission showed no evidence of cholelithiasis or biliary tract dilatation. Abdominal MRI on 12/26/2024 showed gallbladder wall thickening
with significant edema and small�moderate amount of fluid surrounding the liver in the right upper quadrant. Patient was then recommended for cholecystectomy which the patient agreed with. Today, he underwent laparoscopic cholecystectomy with
abdominal washout and drain placement as well as an open primary repair of incarcerated umbilical hernia - postoperative diagnosis included perforated gangrenous acalculous cholecystitis with generalized bile peritonitis with an incarcerated
umbilical hernia. Postoperatively he was found to be hypercapnic, started on BiPAP and transferred to ICU for further care. [employer] service consulted for additional management/recommendations.
When I saw the patient he was having abdominal discomfort, currently on BiPAP 01/18 with VTe between 680-780 cc. His PIP was 12 cmH2O. Currently on NS at 80 cc an hour. BP 117/62.
Of note, patient arrived to the ICU from the PACU at 1800 on 12/27/2024
PMHx: Hypertension, history of prostate cancer
PSHx: Right hip ORIF
Past Medical History
Past Medical History: Other (Above as per HPI)
Past Surgical History: Other (Above as per HPI)
Social History
Tobacco: Former Smoker
Alcohol: None
Drug: None
Family History
Family History: CAD (Mother), Cancer (Mother) and Hypertension (Mother)
Allergies / Home Medications
Allergies
Allergy/AdvReac Type Severity Reaction Status Date / Time
amoxicillin (From Augmentin) Allergy Nausea / Verified 12/26/24 16:27
Vomiting
clavulanic acid (From Allergy Nausea / Verified 12/26/24 16:27
Augmentin) Vomiting
Home Medications
�Medication �Instructions �Recorded �Confirmed �Last Taken �Type
doxazosin 2 mg tablet 2 mg PO HS Blood pressure 04/13/20 12/26/24 12/25/24 History
dutasteride 0.5 mg capsule 0.5 mg PO HS Urinary issue 04/13/20 12/26/24 12/25/24 History
(Avodart)
loperamide 2 mg capsule 2 mg PO Q6HPRN PRN DIARRHEA 04/13/20 12/26/24 12/25/24 History
acetaminophen 325 mg tablet 650 mg PO Q4HPRN PRN mild pain 12/26/24 12/26/24 12/25/24 History
aspirin 325 mg tablet 325 mg PO HS Blood Clot 12/26/24 12/26/24 12/25/24 History
Prevention/Tx
bicalutamide 50 mg tablet 50 mg PO HS prostate issue 12/26/24 12/26/24 12/25/24 History
cyclosporine 0.05 % eye drops in a 1 drp BOTH EYES BID dry eye 12/26/24 12/26/24 12/25/24 History
dropperette
furosemide 20 mg tablet 20 mg PO DAILY@1400 Fluid 12/26/24 12/26/24 12/25/24 History
Retention/Swelling
lisinopril 10 mg tablet 10 mg PO HS Blood Pressure 12/26/24 12/26/24 12/25/24 History
Review of Systems
-
Unable to Obtain full review of systems at this time due to: Acuity
Vitals / Labs / Diagnostic Testing
Vital Signs
Temp Pulse Resp BP Pulse Ox
97.8 F 93 15 120/62 96
12/27/24 17:00 12/27/24 19:15 12/27/24 19:15 12/27/24 19:00 12/27/24 19:15
Lab Data
12/27/24 06:47
12/27/24 06:47
Laboratory Results
12/27/24 12/27/24 12/27/24
16:57 16:58 18:29
PT 17.6 H
INR 1.40
APTT 33.4
pH Cancelled 7.19 L* 7.28 L
pCO2 Cancelled 53 H 39
pO2 Cancelled 72 L 147 H
HCO3 Cancelled 20.2 L 18.3 L
O2 Delivery Level Cancelled
Microbiology
12/27/24 13:51 Gallbladder Gram Stain - Preliminary
Diagnostic Testing:
Physical Exam
-
HEENT: Normocephalic and Anicteric
Cardiovascular: S1/S2 and Peripheral Edema (negative)
Respiratory: Wheeze (negative), Rales (negative), Rhonchi (negative) and Accessory Resp Muscle Use (Mild)
GI: Soft, Distended (Abdominal obesity), Tender (Periumbilical) and Other (hypoactive bowel sounds)
Neurology: Awake and Tremors (negative)
Skin: Warm and Dry
General: Respiratory Distress (mild), Pain (Abdominal), Chills (negative), Sweats (negative) and Other (Appears uncomfortable due to abdominal pain)
Assessment
-
Assessment: 79-year-old male with a past medical history of prostate cancer, BPH, elevated PSA, hypertension and obesity who presents with nausea/vomiting and right-sided abdominal pain. CT abdomen/pelvis showed suspected gallbladder wall
thickening and pericholecystic stranding. General surgery consulted who recommended MRCP. Abdominal ultrasound also on admission showed no evidence of cholelithiasis or biliary tract dilatation. Abdominal MRI on 12/26/2024 showed gallbladder wall
thickening with significant edema and small�moderate amount of fluid surrounding the liver in the right upper quadrant. Patient was then recommended for cholecystectomy which the patient agreed with. On 12/27/2024, he underwent laparoscopic
cholecystectomy with abdominal washout and drain placement as well as an open primary repair of incarcerated umbilical hernia - postoperative diagnosis included perforated gangrenous acalculous cholecystitis with generalized bile peritonitis with an
incarcerated umbilical hernia. Postoperatively he was found to be hypercapnic, started on BiPAP and transferred to ICU for further care. [employer] service consulted for additional management/recommendations.
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
Impression:
#Acute hypercapnic + hypoxic respiratory failure now on BiPAP
#CO2 narcosis
#Perforated gangrenous acalculous cholecystitis with generalized bile peritonitis s/p laparoscopic cholecystectomy + abdominal washout with drain placement - POD #0
#Incarcerated umbilical hernia (3 cm) s/p open primary repair - POD #0
#Leukocytosis due to sepsis from perforated gangrenous acalculous cholecystitis as stated above
#GLO
#History of prostate cancer
#Obesity
#Hypertension
Plan:
- Continue with BiPAP and adjust IPAP to 15 cmH2O and continue with serial blood gas to assure that pH + pCO2 are improving
- Low threshold to intubate however if pH remains >7.25 and pCO2 remains <45 then he will be out of the danger zone to be intubated
- Postoperative management as per general surgery
- GI was also consulted on 12/27 - recs appreciated
- Continue with antibiotics, currently on ceftriaxone + Flagyl
- Follow-up tissue culture from OR (gallbladder)
- Recommend to obtain a set of blood cultures
- If he becomes hemodynamically unstable then would broaden antibiotics further and consult ID
- Maintain SpO2 >90-94%, bleeding BiPAP with supplemental O2 as needed
- Maintain MAP>65 � he may need vasopressors; continue with IVF for now
- Replete electrolytes with K>4, Mg>2
- Maintain euglycemia with goal BG 140-180
- Trend H/H and transfuse if needed to keep Hb>7g/dL; keep plt>50k (given postoperative status)
- prn nebulized bronchodilators - not currently bronchospastic
- DVT ppx: HSQ
Continue ICU level of care for this critically ill patient
Critical care statement: A total of 38 minutes of critical care time was provided for this patient today. This includes management of unstable vital signs, evaluation of the patient at bedside, reviewing the patient's pertinent medical records
including radiographs, microbiology, laboratory evaluations, and discussion with primary team, consultants, pharmacy, nutrition, physical therapy, case management, charge nurse, critical care nursing, and respiratory therapy.
[2024-12-27] MEDS: DILAUDID 0.5 MG IV ×2 (18:38→23:53)
[2024-12-27 18:39] LABS: B.E. -7.9 mmol/L; HCO3 18.3 mmol/L (21-28); O2 Saturation % 99.3 % (94-98); PCO2 39 mmHg (35-48); PO2 147 mmHg (83-108)
--- NOTE | 2024-12-27 20:00 | PTCARENOTE ---
Assumed care at 1900. NSR on the monitor. On the bipap 15/5 5 liters. NGT to 55 cm and chest xray with incorrect positioning of the tube. NGT attempted to be replaced and continues to coil. Unable to replaced NGT at this time. ICU provider made
aware and ok with NGT being out as long as patient is not vomiting. No vomiting/nausea noted at this time. Patient cooperative with care but drowsy. 3 NANCY drains to abdominal sites with serosanguineous drainage- dressings clean dry and intact.
Abdomen distended with hypoactive bowel sounds.
--- NOTE | 2024-12-28 00:31 | PTCARENOTE ---
Patient alert, oriented, and cooperative. Requesting BIPAP to be taken off- ICU provider made aware. BIPAP weaned to 6 liters and tolerating. ABG ordered for am. PRN dilaudid given for abd pain.
[2024-12-28] MEDS: FLAGYL 500 MG 100 IV ×3 (01:53→20:16)
[2024-12-28 03:37] LABS: Hematocrit 29.9 % (39.0-52.0); Hemoglobin 9.8 g/dL (13.0-18.0); Mean Corp Hgb Conc. 32.8 g/dL (33.0-37.0); Mean Corpuscular Volume 94.0 fL (80.0-94.0); Platelet Count 141 10^3/uL (130-400); Red Cell Dist. Width 13.4 % (11.5-14.5)
[2024-12-28 03:38] LABS: B.E. -4.8 mmol/L; HCO3 20.5 mmol/L (21-28); O2 Saturation % 99.3 % (94-98); PCO2 38 mmHg (35-48); PO2 134 mmHg (83-108); Potassium 4.6 mMOL/L (3.5-5.1); Sodium 133 mMOL/L (136-145)
[2024-12-28 03:39] LABS: O2 Therapy 50
[2024-12-28] MEDS: DILAUDID 1 MG IV (03:44)
[2024-12-28] MEDS: NSS 1000 IV (03:49)
[2024-12-28 04:04] LABS: ALT (SGPT) 82 U/L (0-50); AST (SGOT) 106 U/L (17-59); Albumin 2.8 g/dl (3.5-5.0); Alkaline Phosphatase 60 U/L (38-126); Blood Urea Nitrogen 44 mg/dl (9-20); Calcium 7.6 mg/dl (8.4-10.2); Carbon Dioxide 23 mmol/L (22-30); Chloride 108 mmol/L (98-107); Estimated Creatinine Clearance 37 ml/min; Glucose 130 mg/dl (70-99); Potassium 4.5 mmol/L (3.5-5.1); Sodium 136 mmol/L (135-145); Total Protein 5.4 g/dl (6.3-8.2); eGFR 37.58
[2024-12-28] MEDS: CALCIUM GLUCONATE 130 MG IV (04:26)
--- NOTE | 2024-12-28 04:35 | PTCARENOTE ---
No change from previous assessment. PRN dilaudid given for abd pain. No nausea/ vomiting. 3 NANCY sites with serosanguinous drainage. Satting in the high 90s on 6 liters NC.
[2024-12-28 06:00] VITALS: BMI 32.4
[2024-12-28] MEDS: RESTASIS 0.05% OPHTHALMIC EMULSION 1 DROPS BOTH EYES ×2 (07:56→20:16)
[2024-12-28] MEDS: PROTONIX IV 40 MG IV (07:57)
[2024-12-28] MEDS: NSS (PRESERVATIVE FREE) 10 ML IV (07:57)
--- NOTE | 2024-12-28 08:14 | W.PN.GS2 ---
Addendum entered and electronically signed by Gabriele Nina MD 12/28/24 08:26:
Updated patient's son via phone call as well.
Original Note:
Today's Communication / Plan
-
`
Assessment / Plan
-
Assessment: 79 y/o male POD #1 status post lap julio; open repair incarcerated umbilical hernia
Gangrenous perforated acalculous cholecystitis
Generalized bile peritonitis
Sepsis secondary to perforated gangrenous cholecystitis
Incarcerated umbilical hernia
Postoperative urinary retention -requiring Cabrera catheter placement
Ileus
Operative findings and anticipated protracted hospitalization/recovery given severity of cholecystitis reviewed with patient
AFVSS
No pressor requirement
JPs with expected bilious tinged drainage and quantity.
Abdominal examination consistent with ileus -NG tube removed overnight inadvertently; will monitor with it out
OR cultures pending; moderate WBCs no organisms on preliminary Gram stain
Plan: Given premature/inadvertent NG tube removal -continue to maintain strict n.p.o. as patient has ileus
Maintenance IV's
Maintain Cabrera catheter due to retention and history of BPH/retention until ambulating postop and returning GI function
Maintain JPs monitoring outputs
Continue ceftriaxone/Flagyl -following culture results
Okay to resume subcutaneous heparin for VTE prophylaxis
Subjective Data
-
Date of Service: December 28, 2024
Patient seen and examined. Nursing at bedside.
Reports preoperative abdominal pains improving.
Denies nausea.
No flatus.
Objective Data
-
Intake and Output
12/27/24 12/28/24 12/29/24
06:59 06:59 06:59
Intake Total 1010 / 1010 1540 / 1620 80 / 80
Output Total 400 / 400 842 / 917 75 / 75
Balance 610 / 610 698 / 703 5 / 5
Intake:
IV fluids (Total) 960 / 960 1240 / 1320 80 / 80
Nss 1,000 ml @ 80 mls/hr IV . 1040 / 1120 80 / 80
[id number] [facility] Rx#:[id number]
normosol 200 / 200
IV piggybacks 50 / 50 300 / 300
Amount instilled into GI Tube ( 0 / 0
Total)
[place] 0 / 0
Output:
Drain Output (Total) 297 / 297
Left Abdomen Michael-Valadez C 150 / 150
Right Middle Abdomen A 42 / 42
Right Middle Abdomen Michael- 105 / 105
Valadez B
Gastrointestinal tube output ( 0 / 0
Total)
[place] 0 / 0
Urine, Cabrera 545 / 620 75 / 75
Urine, Voided 400 / 400
Other:
How many times incontinent 1
SMALL amount urine
Vital Signs
Temp Pulse Resp BP Pulse Ox
97.7 F 81 21 124/69 97
12/28/24 01:55 12/28/24 06:15 12/28/24 06:15 12/27/24 20:00 12/28/24 06:15
Lab Results
12/28/24 03:17
12/28/24 03:17
Calcium 7.6 mg/dl (8.4-10.2) L 12/28/24 03:17
Total Bilirubin 0.3 mg/dl (0.2-1.3) 12/28/24 03:17
AST 106 U/L (17-59) H 12/28/24 03:17
ALT 82 U/L (0-50) H 12/28/24 03:17
Alkaline Phosphatase 60 U/L (38-126) 12/28/24 03:17
Total Protein 5.4 g/dl (6.3-8.2) L 12/28/24 03:17
Albumin 2.8 g/dl (3.5-5.0) L 12/28/24 03:17
Physical Exam
-
NAD AAO x 3
ABD: Distended, tympanitic, tenderness on palpation at incision sites appropriately so.
NANCY drains with bile tinged fluid serosanguineous reactive ascites fluid
Patient has a cabrera catheter: Yes
--- NOTE | 2024-12-28 08:17 | W.PN.INTV ---
Today's Communication / Plan
Recommendations
Postoperative management as per general surgery
Follow-up tissue culture from the OR
Continue antibiotics
Pain control
Continue wean down supplemental O2 flow rate while maintaining SpO2 >90-94%
If resting SaO2 is <96% on room air or if unable to wean off oxygen fully, then check home O2 assessment prior to discharge
Trend blood gas tomorrow morning to assure pH + pCO2 remained stable
Okay to monitor off BiPAP and can use BiPAP if needed going forward
Encourage incentive spirometer
Patient is stable for downgrade out of ICU to telemetry. No additional recommendations at this time. [facility]/Pulmonary service will now sign off. Please reconsult if there are any additional questions/concerns, or if patient's respiratory
status deteriorates.
Assessment
-
Assessment: 79-year-old male with a past medical history of prostate cancer, BPH, elevated PSA, hypertension and obesity who presents with nausea/vomiting and right-sided abdominal pain. CT abdomen/pelvis showed suspected gallbladder wall
thickening and pericholecystic stranding. General surgery consulted who recommended MRCP. Abdominal ultrasound also on admission showed no evidence of cholelithiasis or biliary tract dilatation. Abdominal MRI on 12/26/2024 showed gallbladder wall
thickening with significant edema and small�moderate amount of fluid surrounding the liver in the right upper quadrant. Patient was then recommended for cholecystectomy which the patient agreed with. On 12/27/2024, he underwent laparoscopic
cholecystectomy with abdominal washout and drain placement as well as an open primary repair of incarcerated umbilical hernia - postoperative diagnosis included perforated gangrenous acalculous cholecystitis with generalized bile peritonitis with an
incarcerated umbilical hernia. Postoperatively he was found to be hypercapnic, started on BiPAP and transferred to ICU for further care. [facility] service consulted for additional management/recommendations.
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
Impression:
#Acute hypercapnic + hypoxic respiratory failure now on BiPAP - hypercapnia resolved, hypoxia markedly improved
#CO2 narcosis - now resolved
#Perforated gangrenous acalculous cholecystitis with generalized bile peritonitis s/p laparoscopic cholecystectomy + abdominal washout with drain placement - POD #1
#Incarcerated umbilical hernia (3 cm) s/p open primary repair - POD #1
#Leukocytosis due to sepsis from perforated gangrenous acalculous cholecystitis as stated above
#GLO
#History of prostate cancer
#Obesity
#Hypertension
Plan:
- Patient has been off BiPAP since yesterday evening, and his pCO2 + pH both remain stable. Okay to use BiPAP as needed going forward.
- Re-check blood gas tomorrow AM to assure pH and pCO2 remain stabl\\e
- Postoperative management as per general surgery
- GI was also consulted on 12/27 - recs appreciated
- Continue with antibiotics, currently on ceftriaxone + Flagyl
- Follow-up tissue culture from OR (gallbladder)
- If he becomes hemodynamically unstable then would rincon-Cx, broaden antibiotics further and consult ID
- Maintain SpO2 >90-94%, weaning down supplemental O2 as tolerated
- Maintain MAP>65 � continue with IVF for now as he remains NPO
- Defer decision to start diet to general surgery; NGT was removed overnight after it was unable to be repositioned � surgery is aware and okay with no NGT for now given that he is stable with no complaints of abdominal pain/discomfort and he is not
nauseous or vomiting
- Continue to monitor with serial abdominal exams
- Replete electrolytes with K>4, Mg>2
- Maintain euglycemia with goal BG 140-180
- Trend H/H and transfuse if needed to keep Hb>7g/dL; keep plt>50k (given postoperative status)
- prn nebulized bronchodilators - not currently bronchospastic
- DVT ppx: HSQ
Patient is stable for downgrade out of ICU to telemetry. No additional recommendations at this time. [facility]/Pulmonary service will now sign off. Thank you for allowing us to be involved in the care of this patient. Please reconsult if there
are any additional questions/concerns, or if patient's respiratory status deteriorates.
Total time spent today was 56 minutes for this encounter. Time includes reviewing laboratory test/imaging results, reviewing pertinent medical records, obtaining and reviewing medical history, performing an appropriate exam, ordering medications,
tests and procedures. Time also includes documentation of this encounter, coordinating patient care and communicating with other healthcare professionals. Total time does not include separately billed tests performed on this date of service.
Subjective Dataa
Subjective Data
Date of Service:
Date of Service: December 28, 2024
Chief Complaint: [facility] Follow Up
Subjective:
Patient seen and evaluated this morning. Off BiPAP since last night at around 12:15 AM. He is much more awake and alert today, answering questions appropriately and in no acute distress. Currently A-line in place with heart rate 86 and he is
saturating 96% on 3 L/min. I spoke to the patient's son, Mehul, and answered all of his questions.
Review of Systems
General: Other (Negative unless mentioned above)
Objective Data
Data Reviewed
Vital Signs / I&O / Oxygen:
Vital Signs
Temp Pulse Resp BP Pulse Ox
97.8 F 92 18 142/73 96
12/28/24 08:00 12/28/24 09:30 12/28/24 09:30 12/28/24 09:10 12/28/24 09:30
Intake and Output
12/27/24 12/28/24 12/29/24
06:59 06:59 06:59
Intake Total 1010 / 1010 1540 / 1620 420 / 420
Output Total 400 / 400 842 / 917 75 / 75
Balance 610 / 610 698 / 703 345 / 345
SaO2 96
Physical Exam
General: Respiratory Distress (negative), Comfortable, Chills (negative) and Sweats (negative)
HEENT: Normocephalic and Anicteric
Cardiovascular: S1-S2 and Peripheral Edema (+2 lower extremity pedal edema bilaterally)
Respiratory: Wheeze (negative), Crackles (Bibasilar), Rhonchi (negative) and Non-Labored Respirations
GI: Soft, Distended (Abdominal obesity), Non Tender and Normal Bowel Sounds
Neurology: Awake, Alert and Tremors (negative)
Skin: Warm, Dry, Cyanosis (negative) and Jaundice (negative)
Labs/Micro/Reports
Lab Data
12/28/24 03:17
12/28/24 03:17
Laboratory Results
12/27/24 12/27/24 12/27/24
16:57 16:58 18:29
PT 17.6 H
INR 1.40
APTT 33.4
pH Cancelled 7.19 L* 7.28 L
pCO2 Cancelled 53 H 39
pO2 Cancelled 72 L 147 H
HCO3 Cancelled 20.2 L 18.3 L
O2 Delivery Level Cancelled
12/28/24
03:17
PT
INR
APTT
pH 7.34 L
pCO2 38
pO2 134 H
HCO3 20.5 L
O2 Delivery Level 50
Microbiology
12/26/24 18:46 Nose MRSA Screen - Final
No Methicillin Resistant Staphylococcus aureus isolated.
12/27/24 13:51 Gallbladder Gram Stain - Preliminary
[2024-12-28 09:10] VITALS: BP 142/73
[2024-12-28] MEDS: HEPARIN 5000 UNITS SC ×2 (09:10→16:15)
[2024-12-28] MEDS: DILAUDID 0.5 MG IV ×2 (09:17→18:09)
[2024-12-28 10:39] VITALS: BMI 32.4
[2024-12-28] MEDS: LR 1000 IV ×2 (11:00→23:24)
--- NOTE | 2024-12-28 11:59 | W.PN.HOSP.TC ---
Today's Communication/Plan
-
.
Assessment / Plan
Assessment / Plan
Physical Exam
General:no respiratory distress
HEENT: Normocephalic and Anicteric. Dry MM
Respiratory: Clear
Cardiac: Regular Rhythm
GI: soft,
Musculoskeletal: No Clubbing and No Cyanosis
Skin: Warm and Dry
Neuro: Awake, Alert and AO to self and surroundings.
Psych: Calm
# acute perforated gangrenous acalculous cholecystitis/ Generalized bile peritonitis/ Incarcerated umbilical hernia, ileus
Evolving Sepsis POA with organ dysfunction peritonitis/leukocytosis/tachycardia/ GLO
s/p Laparoscopic cholecystectomy, laparoscopic abdominal washout with drain placement, open primary repair incarcerated umbilical hernia.
c/w IVF/ NPO
IV Abx
Per surgery: Maintain Cummings catheter due to retention and history of BPH/retention until ambulating postop and returning GI function
Appreciate ICU and surgery doctors help
# Acute post op blood loss anemia
Monitor
Transfuse if HGB less than 8
# hyponatremia
# GLO
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
c/w IVF
Monitor for retention
-hold NUTRITION PROFESSOR Lisinopril/ Lasix
BPH
-NUTRITION PROFESSOR Dutasteride, Doxazosin
Essential HTN
-hold NUTRITION PROFESSOR Lisinopril as GLO
-NUTRITION PROFESSOR Doxazosin
Hx Prostate CA
-continue NUTRITION PROFESSOR Bicalutamide
DVT PPx SQ heparin
Total time spent to see the patient, examine the patient, review data and lab results, discuss treatment plan with patient, his son, consultants, nursing staff around 55 minutes
Anticipated Discharge: > 48 hours
Subjective/Interval History
-
Date of Service: December 28, 2024
no chest pain
no sob
Objective Data
-
Labs:
Laboratory Results
12/28/24 12/28/24
03:17 13:00
WBC 12.1 H
Hgb 9.8 L
Hct 29.9 L
Plt Count 141
HCO3 20.5 L Pending
Sodium 136
Potassium 4.5
Chloride 108 H
Carbon Dioxide 23
BUN 44 H
Creatinine 1.8 H
Glucose 130 H
Calcium 7.6 L
Total Bilirubin 0.3
AST 106 H
ALT 82 H
Alkaline Phosphatase 60
Vital Signs:
Vital Signs
Temp Pulse Resp BP Pulse Ox
97.8 F 92 18 142/73 96
12/28/24 11:47 12/28/24 09:30 12/28/24 09:30 12/28/24 09:10 12/28/24 09:30
I&O
12/27/24 12/28/24 12/29/24
06:59 06:59 06:59
Intake Total 1010 / 1010 1540 / 1620 420 / 420
Output Total 400 / 400 842 / 917 75 / 75
Balance 610 / 610 698 / 703 345 / 345
[2024-12-28 13:10] VITALS: BP 155/70
[2024-12-28 13:15] LABS: B.E. -5.2 mmol/L; HCO3 19.9 mmol/L (21-28); O2 Saturation % 98.2 % (94-98); PCO2 36 mmHg (35-48); PO2 94 mmHg (83-108)
--- NOTE | 2024-12-28 13:18 | CM ---
F/U: Patient still NPO, Cummings, and still on Abx post Hernia Surgery, no recommendations yet from PT/OT. Anticipate Home PT vs. No Needs vs. SNF.
[2024-12-28] MEDS: DUONEB 3 ML INH ×2 (13:32→20:13)
--- NOTE | 2024-12-28 14:58 | PN.CDI ---
Addendum entered and electronically signed by Reilly Tinoco MD 12/28/24 15:47:
After study GLO has been ruled out
Original Note:
CDI
- -
CDI:
Physician Documentation Request
Admit Date: 12/26/24 14:26
Dear Doctor Alejandrina,
Progress notes include a diagnosis of GLO.
Creatinine
Laboratory Tests
12/26/24 12/27/24 12/28/24
07:43 06:47 03:17
Creatinine 1.6 H 1.7 H 1.8 H
Criteria for GLO*
1 Increase in serum creatinine by > or = to 0.3 mg/dL (> or = to 26.5 micromol/L) within 48 hours, OR
2 Increase in serum creatinine to > or = to 1.5 times baseline, which is known or presumed to have occurred within 7 days, OR
3 Urine volume < 0.5 nL/kg/hour for six hours
Based on the above information and the recognized standard for GLO could you please verify this diagnoses is still accurate and reflective of the patient�s condition to ensure quality of the medical record.
Please clarify in the Progress Notes:
�GLO is/was present and is a clinical diagnosis based on (please include this additional support in the medical record)
�After study GLO has been ruled out
�Other
Use of terms such as suspected, likely, concern for, or probable (associated with a specific diagnosis that is being evaluated, monitored, or treated as if it exists) are acceptable and can be coded in the inpatient setting, when documented at the
time of discharge.
Thank you,
Diana Goddard RN, BSN
CDI Specialist
tiger text
Please use your independent medical judgment in providing your response.
[2024-12-28 16:17] VITALS: BP 147/65
--- NOTE | 2024-12-28 17:43 | PTCARENOTE ---
Patient A/O x3, forgetful with repetitive questions. Anxious, support provided. [place]. 2L NC in place. Lungs with intermittent wheezing; albuterol neb ordered. NSR on telemetry. BP 120-160s. Abd is round, tender to touch, hypoactive BS. NANCY drains
intact. Denies N/V. Abd dressing/lap site C/D/I. Cummings catheter in place(urology determination), draining dharmesh colored urine. SCDs in place. LE with +2 pitting edema. Turning and repositioning using pillows/wedge. Encouraged use of pillow to brace
abd while coughing and deep breathing. Reports intermittent 5/10 pain and spams to abd, PRN IV Dilaudid provided. ABG WNL. A-line removed w/o issues. Patient has been downgraded to med/surg status. Patient's son(Mehul) visited and was updated today.
Call hermosillo within reach. Bed alarm set for safety.
[2024-12-28] MEDS: ROCEPHIN 2000 MG IV (18:11)
[2024-12-28] MEDS: STERILE WATER FOR INJECTION 20 ML IV (18:11)
[2024-12-28 20:00] VITALS: BP 135/70
--- NOTE | 2024-12-28 20:00 | PTCARENOTE ---
Received pt. at 1900. Pt. currently awake, alert, and oriented. Laying in bed. PRN pain medication, see MAR. Afebrile. Blood pressure normotensive. Currently on nasal cannula. Lungs sound diminished. NPO. No nausea or vomiting noted. Cummings catheter
in place, draining without issue. Skin as documented. Vital signs stable at this time.
[2024-12-29] VITALS (8 sets, daily range): BP systolic 130–169; BP diastolic 58–76; PULSE 99; BMI 32.5
[2024-12-29] MEDS: HEPARIN 5000 UNITS SC ×3 (01:00→16:43)
[2024-12-29 06:03] LABS: Venous Blood Gas B.E. -3.6 mmol/L (-4 to +4); Venous Blood Gas O2 Sat % 98.4 %
[2024-12-29 06:07] LABS: Hematocrit 30.7 % (39.0-52.0); Hemoglobin 9.9 g/dL (13.0-18.0); Mean Corp Hgb Conc. 32.2 g/dL (33.0-37.0); Mean Corpuscular Volume 95.6 fL (80.0-94.0); Platelet Count 131 10^3/uL (130-400); Red Cell Dist. Width 13.5 % (11.5-14.5)
[2024-12-29 06:34] LABS: ALT (SGPT) 64 U/L (0-50); AST (SGOT) 43 U/L (17-59); Albumin 2.7 g/dl (3.5-5.0); Alkaline Phosphatase 67 U/L (38-126); Blood Urea Nitrogen 43 mg/dl (9-20); Calcium 8.1 mg/dl (8.4-10.2); Carbon Dioxide 21 mmol/L (22-30); Chloride 108 mmol/L (98-107); Estimated Creatinine Clearance 44 ml/min; Glucose 87 mg/dl (70-99); Magnesium 2.3 mg/dl (1.6-2.3); Potassium 4.6 mmol/L (3.5-5.1); Sodium 133 mmol/L (135-145); Total Protein 5.3 g/dl (6.3-8.2); eGFR 46.77
[2024-12-29] MEDS: DUONEB 3 ML INH ×3 (07:59→19:39)
[2024-12-29] MEDS: FLAGYL 500 MG 100 IV ×2 (08:33→19:28)
[2024-12-29] MEDS: NSS (PRESERVATIVE FREE) 10 ML IV (08:33)
[2024-12-29] MEDS: PROTONIX IV 40 MG IV (08:33)
[2024-12-29] MEDS: RESTASIS 0.05% OPHTHALMIC EMULSION 1 DROPS BOTH EYES ×2 (08:33→19:29)
[2024-12-29] MEDS: DILAUDID 0.5 MG IV (08:58)
--- NOTE | 2024-12-29 09:39 | W.PN.HOSP.TC ---
Addendum entered and electronically signed by Reilly Tinoco MD 12/29/24 14:29:
Addendum
Blood pressure starting to go up. Patient is tolerating clear liquids. Unable to resume lisinopril/Lasix because of kidney insufficiency. Will try low-dose oral hydralazine as needed. Can go back on doxazosin at nighttime
End
Original Note:
Today's Communication/Plan
-
c/w pain control
NPO/ IVF
IV ABx
IV PPI
Assessment / Plan
Assessment / Plan
Physical Exam
General:no respiratory distress
HEENT: Normocephalic and Anicteric. Dry MM
Respiratory: Clear
Cardiac: Regular Rhythm
GI: soft,
Musculoskeletal: No Clubbing and No Cyanosis
Skin: Warm and Dry
Neuro: Awake, Alert and AO to self and surroundings.
Psych: Calm
# acute perforated gangrenous acalculous cholecystitis/ Generalized bile peritonitis/ Incarcerated umbilical hernia, ileus
Evolving Sepsis POA with organ dysfunction peritonitis/leukocytosis/tachycardia/ GLO
s/p Laparoscopic cholecystectomy, laparoscopic abdominal washout with drain placement, open primary repair incarcerated umbilical hernia.
c/w IVF/ NPO
IV Abx
Per surgery: Maintain Cummings catheter due to retention and history of BPH/retention until ambulating postop and returning GI function
Appreciate ICU and surgery doctors help
# Acute post op blood loss anemia
Monitor
Transfuse if HGB less than 8
# Hard hearing
# hyponatremia
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
c/w IVF
Monitor for retention
-hold APPRENTICE PATTERN MAKER Lisinopril/ Lasix
BPH
-APPRENTICE PATTERN MAKER Dutasteride, Doxazosin
Essential HTN
-hold APPRENTICE PATTERN MAKER Lisinopril as GLO
-APPRENTICE PATTERN MAKER Doxazosin
Hx Prostate CA
-continue APPRENTICE PATTERN MAKER Bicalutamide
DVT PPx SQ heparin
Total time spent to see the patient, examine the patient, review data and lab results, discuss treatment plan with patient, his son, consultants, nursing staff around 55 minutes
Anticipated Discharge: > 48 hours
Subjective/Interval History
-
Date of Service: December 29, 2024
No chest pain
No sob
Objective Data
-
Labs:
Laboratory Results
12/29/24
05:51
WBC 12.7 H
Hgb 9.9 L
Hct 30.7 L
Plt Count 131
Sodium 133 L
Potassium 4.6
Chloride 108 H
Carbon Dioxide 21 L
BUN 43 H
Creatinine 1.5 H
Glucose 87
Calcium 8.1 L
Total Bilirubin 0.4
AST 43
ALT 64 H
Alkaline Phosphatase 67
Vital Signs:
Vital Signs
Temp Pulse Resp BP Pulse Ox
97.6 F 83 24 149/66 93
12/29/24 07:37 12/29/24 09:00 12/29/24 09:00 12/29/24 08:00 12/29/24 09:00
I&O
12/28/24 12/29/24 12/30/24
06:59 06:59 06:59
Intake Total 1540 / 1620 2019
Output Total 842 / 917 1475 / 1475
Balance 698 / 703 545 / 545
--- NOTE | 2024-12-29 10:03 | W.PN.GS2 ---
Today's Communication / Plan
-
c/w abx
void trial
transfer out of icu
Assessment / Plan
-
Assessment: 79 y/o male POD #2 status post lap julio; open repair incarcerated umbilical hernia
Gangrenous perforated acalculous cholecystitis
Generalized bile peritonitis
Sepsis secondary to perforated gangrenous cholecystitis (resolved)
Incarcerated umbilical hernia
Postoperative urinary retention -requiring Cabrera catheter placement
Ileus beginning to resolve with passage of flatus
AFVSS
Improved oxygenation
JPs with expected bilious tinged drainage and quantity.
Leukocytosis persists
OR cultures pending; GNB on preliminary Gram stain
Plan:
Trial of clears
Maintenance IV's as per primary team
Void trial this am
Maintain JPs monitoring outputs
Continue ceftriaxone/Flagyl -following culture results
Ok for transfer out of ICU from surgical standpoint.
OOB/ambulate, PT/OT orders placed
Analgesics prn
SCDs/Subcutaneous heparin for VTE prophylaxis
Medical management as per primary team
Subjective Data
-
Date of Service: December 29, 2024
Pt seen and examined at bedside with Dr. Soria. Denies n/v. Passing a large amount of flatus. Some soreness but denies pain. No belching.
Objective Data
-
Intake and Output
12/28/24 12/29/24 12/30/24
06:59 06:59 06:59
Intake Total 1540 / 1620 2019
Output Total 842 / 917 1475 / 1475
Balance 698 / 703 545 / 545
Intake:
IV fluids (Total) 1240 / 1320 1919
Nss 1,000 ml @ 80 mls/hr IV . 1040 / 1120 1919
[id number] [facility] Rx#:[id number]
normosol 200 / 200
IV piggybacks 300 / 300 100 / 100
Amount instilled into GI Tube ( 0 / 0
Total)
Lewis Sump 0 / 0
Output:
Drain Output (Total) 297 / 297 170 / 170
Left Abdomen Michael-Valadez C 150 / 150 110 / 110
Right Middle Abdomen A 42 / 42 30 / 30
Right Middle Abdomen Michael- 105 / 105 30 / 30
Valadez B
Gastrointestinal tube output ( 0 / 0
Total)
Lewis Sump 0 / 0
Urine, Cabrera 545 / 620 1305 / 1305
Vital Signs
Temp Pulse Resp BP Pulse Ox
97.6 F 83 24 149/66 93
12/29/24 07:37 12/29/24 09:00 12/29/24 09:00 12/29/24 08:00 12/29/24 09:00
Lab Results
12/29/24 05:51
12/29/24 05:51
Calcium 8.1 mg/dl (8.4-10.2) L 12/29/24 05:51
Phosphorus 2.7 mg/dl (2.5-4.5) 12/29/24 05:51
Magnesium 2.3 mg/dl (1.6-2.3) 12/29/24 05:51
Total Bilirubin 0.4 mg/dl (0.2-1.3) 12/29/24 05:51
Direct Bilirubin 0.2 mg/dl (0.0-0.4) 12/29/24 05:51
AST 43 U/L (17-59) 12/29/24 05:51
ALT 64 U/L (0-50) H 12/29/24 05:51
Alkaline Phosphatase 67 U/L (38-126) 12/29/24 05:51
Total Protein 5.3 g/dl (6.3-8.2) L 12/29/24 05:51
Albumin 2.7 g/dl (3.5-5.0) L 12/29/24 05:51
Physical Exam
-
NAD AAO x 3
ABD: Distention, tenderness on palpation at incision sites, appropriately so
NANCY drains with light bile tinged fluid serosanguineous reactive ascites fluid
Patient has a cabrera catheter: Yes
[2024-12-29] MEDS: APRESOLINE 5 MG PO (14:33)
--- NOTE | 2024-12-29 14:41 | PTCARENOTE ---
OOB in chair x4 hrs. PRN hydalazine given for HTN
[2024-12-29] MEDS: ROCEPHIN 2000 MG IV (18:39)
[2024-12-29] MEDS: STERILE WATER FOR INJECTION 20 ML IV (18:39)
--- NOTE | 2024-12-29 19:30 | PTCARENOTE ---
Received pt. at 1900. Pt. currently awake, alert, and oriented. Laying in bed. Currently denies pain/discomfort. Afebrile. Heart rhythm sinus. Blood pressure normotensive. Currently nasal cannula. Lungs sound diminished. Clear liquid diet. No nausea
or vomiting noted. Voiding in urinal. Skin as documented. Discussed plan of care with patient. Vital signs stable at this time.
[2024-12-29] MEDS: CARDURA 2 MG PO (21:34)
[2024-12-30] VITALS (10 sets, daily range): BP systolic 135–171; BP diastolic 68–77; PULSE 98–118; O2SAT 98; BMI 32.2
[2024-12-30] MEDS: HEPARIN 5000 UNITS SC ×4 (00:26→23:31)
[2024-12-30] MEDS: APRESOLINE 5 MG PO (05:28)
[2024-12-30] MEDS: DILAUDID 0.5 MG IV (05:28)
[2024-12-30 05:45] LABS: Hematocrit 31.2 % (39.0-52.0); Hemoglobin 9.9 g/dL (13.0-18.0); Mean Corp Hgb Conc. 31.7 g/dL (33.0-37.0); Mean Corpuscular Volume 95.4 fL (80.0-94.0); Platelet Count 132 10^3/uL (130-400); Red Cell Dist. Width 13.4 % (11.5-14.5)
[2024-12-30 05:49] LABS: Blood Urea Nitrogen 37 mg/dl (9-20); Calcium 7.8 mg/dl (8.4-10.2); Carbon Dioxide 22 mmol/L (22-30); Chloride 107 mmol/L (98-107); Estimated Creatinine Clearance 47 ml/min; Glucose 97 mg/dl (70-99); Potassium 4.7 mmol/L (3.5-5.1); Sodium 135 mmol/L (135-145); eGFR 50.81
[2024-12-30] MEDS: DUONEB 3 ML INH ×3 (07:55→20:03)
[2024-12-30] MEDS: FLAGYL 500 MG 100 IV ×2 (08:08→19:45)
[2024-12-30] MEDS: NORVASC 5 MG PO (08:09)
[2024-12-30] MEDS: RESTASIS 0.05% OPHTHALMIC EMULSION 1 DROPS BOTH EYES ×2 (08:09→19:46)
[2024-12-30] MEDS: ZESTRIL 10 MG PO (08:09)
[2024-12-30] MEDS: LASIX 20 MG PO (08:09)
[2024-12-30] MEDS: NSS (PRESERVATIVE FREE) 10 ML IV (08:09)
[2024-12-30] MEDS: PROTONIX IV 40 MG IV (08:09)
--- NOTE | 2024-12-30 09:52 | W.PN.HOSP.TC ---
Today's Communication/Plan
-
.
Assessment / Plan
Assessment / Plan
Physical Exam
General:no respiratory distress
HEENT: Normocephalic and Anicteric. normal MM. Hard hearing.
Respiratory: Clear, limited, no wheezes.
Cardiac: Regular Rhythm
GI: soft,
Musculoskeletal: No Clubbing and No Cyanosis
Skin: Warm and Dry
Neuro: Awake, Alert and AO to self and surroundings.
Psych: Calm
# acute perforated gangrenous acalculous cholecystitis/ Generalized bile peritonitis/ Incarcerated umbilical hernia, ileus
Evolving Sepsis POA with organ dysfunction peritonitis/leukocytosis/tachycardia/ GLO
s/p Laparoscopic cholecystectomy, laparoscopic abdominal washout with drain placement, open primary repair incarcerated umbilical hernia.
Stopped IVF while tolerating oral liquids
No nausea, tolerated liquid diet
No fever, WBC is normal now.
PT/OT
IV Abx, changed to IV Cipro per surgery according to the OR culture susceptibility
Cummings is out
Appreciate ICU and surgery doctors help
# Post op acute hypercapnic + hypoxic respiratory failure, s/p BiPAP - hypercapnia resolved, hypoxia markedly improved
c/w Nebulizer, encourage ambulation
O2 need down to 1 liter
# Acute post op blood loss anemia
Monitor
Transfuse if HGB less than 8
# Hard hearing
# hyponatremia
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
Improved renal function.
Monitor for retention
-held DIRECTOR OF DANCE Lisinopril/ Lasix, can resume now
BPH
-DIRECTOR OF DANCE Dutasteride, Doxazosin
Essential HTN
starting to go up
Added PRN low dose oral Hydralazine
Can resume Lisinopril & Lasix
Added low dose amlodipine
Resumed HS Doxazosin
Hx Prostate CA
-continue DIRECTOR OF DANCE Bicalutamide upon discharge.
DVT PPx SQ heparin
Total time spent to see the patient, examine the patient, review data and lab results, discuss treatment plan with patient, his son, consultants, nursing staff around 55 minutes
Anticipated Discharge: > 48 hours
Subjective/Interval History
-
Date of Service: December 30, 2024
Mild abdominal discomfort
Passing gas
No fever
No chest pain
Objective Data
-
Labs:
Laboratory Results
12/30/24
04:55
WBC 9.6
Hgb 9.9 L
Hct 31.2 L
Plt Count 132
Sodium 135
Potassium 4.7
Chloride 107
Carbon Dioxide 22
BUN 37 H
Creatinine 1.4 H
Glucose 97
Calcium 7.8 L
Vital Signs:
Vital Signs
Temp Pulse Resp BP Pulse Ox
98.2 F 82 17 161/72 98
12/30/24 04:00 12/30/24 09:00 12/30/24 09:00 12/30/24 08:00 12/29/24 20:00
I&O
12/29/24 12/30/24 12/31/24
06:59 06:59 06:59
Intake Total 2019
Output Total 1475 / 1475 370 / 370 200 / 200
Balance 545 / 545 -370 / -370 -200 / -200
--- NOTE | 2024-12-30 10:28 | W.PN.GS2 ---
Today's Communication / Plan
-
-- Fulls, Miralax plus
-- DC IVF
-- Abx: switched to Cirpo/Flagyl
Assessment / Plan
-
Assessment: 79 y/o male POD #3 status post lap julio; open repair incarcerated umbilical hernia
Gangrenous perforated acalculous cholecystitis
Generalized bile peritonitis
Sepsis secondary to perforated gangrenous cholecystitis (resolved)
Incarcerated umbilical hernia
Postoperative urinary retention -requiring Cabrera catheter placement
Ileus beginning to resolve with passage of flatus
AFVSS
JPs serosang
Leukocytosis resolved
OR cultures:Citrobacter and Klebsiella, resistent to Ceftriaxone, switched to Ciprofloxacin
Plan:
-- Fulls, Miralax plus
-- DC IVF
-- Maintain JPs monitoring outputs
-- Abx: switched to Cirpo/Flagyl
-- Transfer to floors pending
-- OOB/ambulate, PT/OT orders placed
-- Pain control: Tylenol, Oxycodone
-- DVT: SQH, SCDs
-- Medical management as per primary team
Subjective Data
-
Date of Service: December 30, 2024
Major complaints. No reports of worsening abdominal pain. No nausea or vomiting. Continues to pass flatus, no BM. Afebrile.
Objective Data
-
Intake and Output
12/29/24 12/30/24 12/31/24
06:59 06:59 06:59
Intake Total 2019
Output Total 1475 / 1475 370 / 370 200 / 200
Balance 545 / 545 -370 / -370 -200 / -200
Intake:
IV fluids (Total) 1919
Nss 1,000 ml @ 80 mls/hr IV . 1919
[id number] [facility] Rx#:[id number]
IV piggybacks 100 / 100
Output:
Drain Output (Total) 170 / 170 70 / 70
Left Abdomen Michael-Valadez C 110 / 110 50 / 50
Right Middle Abdomen A 30 / 30 10 10
Right Middle Abdomen Michael- 30 10 10
Valadez B
Urine, Cabrera 1305 / 1305
Urine, Voided 300 / 300 200 / 200
Other:
Number of approximated LARGE 1
amounts of urine
Vital Signs
Temp Pulse Resp BP Pulse Ox
98.2 F 82 17 161/72 98
12/30/24 04:00 12/30/24 09:00 12/30/24 09:00 12/30/24 08:00 12/29/24 20:00
Lab Results
12/30/24 04:55
12/30/24 04:55
Calcium 7.8 mg/dl (8.4-10.2) L 12/30/24 04:55
Phosphorus 2.7 mg/dl (2.5-4.5) 12/29/24 05:51
Magnesium 2.3 mg/dl (1.6-2.3) 12/29/24 05:51
Total Bilirubin 0.4 mg/dl (0.2-1.3) 12/29/24 05:51
Direct Bilirubin 0.2 mg/dl (0.0-0.4) 12/29/24 05:51
AST 43 U/L (17-59) 12/29/24 05:51
ALT 64 U/L (0-50) H 12/29/24 05:51
Alkaline Phosphatase 67 U/L (38-126) 12/29/24 05:51
Total Protein 5.3 g/dl (6.3-8.2) L 12/29/24 05:51
Albumin 2.7 g/dl (3.5-5.0) L 12/29/24 05:51
Physical Exam
-
Gen: NAD
Abd: soft, minimal tenderness, stable distension/obesity, non-peritoneal, incisions c/d/i - no erythema, ecchymosis or drainage, NANCY serosang, non-bilious
Patient has a cabrera catheter: No
Patient has a central line: No
[2024-12-30] MEDS: CIPRO 400 MG 200 IV ×2 (10:44→22:37)
[2024-12-30] MEDS: MIRALAX 17 GRAMS PO (13:15)
[2024-12-30] MEDS: DILAUDID 1 MG IV ×2 (17:26→20:30)
[2024-12-30] MEDS: CARDURA 2 MG PO (22:36)
[2024-12-31 02:47] VITALS: BMI 31.9
[2024-12-31 06:16] LABS: Hematocrit 34.3 % (39.0-52.0); Hemoglobin 10.8 g/dL (13.0-18.0); Mean Corp Hgb Conc. 31.5 g/dL (33.0-37.0); Mean Corpuscular Volume 93.0 fL (80.0-94.0); Platelet Count 156 10^3/uL (130-400); Red Cell Dist. Width 13.4 % (11.5-14.5)
[2024-12-31 06:31] LABS: ALT (SGPT) 43 U/L (0-50); AST (SGOT) 19 U/L (17-59); Albumin 2.9 g/dl (3.5-5.0); Alkaline Phosphatase 64 U/L (38-126); Blood Urea Nitrogen 31 mg/dl (9-20); Calcium 7.9 mg/dl (8.4-10.2); Carbon Dioxide 25 mmol/L (22-30); Chloride 102 mmol/L (98-107); Estimated Creatinine Clearance 51 ml/min; Glucose 118 mg/dl (70-99); Potassium 4.4 mmol/L (3.5-5.1); Sodium 133 mmol/L (135-145); Total Protein 5.6 g/dl (6.3-8.2); eGFR 55.53
[2024-12-31 08:02] VITALS: BP 140/84
[2024-12-31] MEDS: DUONEB 3 ML INH (08:06)
[2024-12-31] MEDS: FLAGYL 500 MG 100 IV ×2 (08:32→20:32)
[2024-12-31] MEDS: RESTASIS 0.05% OPHTHALMIC EMULSION 1 DROPS BOTH EYES ×2 (08:32→20:33)
[2024-12-31] MEDS: HEPARIN 5000 UNITS SC ×3 (08:33→22:38)
[2024-12-31] MEDS: MIRALAX 17 GRAMS PO (08:33)
[2024-12-31] MEDS: NSS (PRESERVATIVE FREE) 10 ML IV (08:33)
[2024-12-31] MEDS: NORVASC 5 MG PO (08:33)
[2024-12-31] MEDS: PROTONIX IV 40 MG IV (08:33)
[2024-12-31] MEDS: LASIX 20 MG PO (08:34)
[2024-12-31] MEDS: ZESTRIL 10 MG PO (08:34)
--- NOTE | 2024-12-31 10:15 | W.PN.GS2 ---
Today's Communication / Plan
-
Full liquids, abx, c/w drains
OOB/Increase activity
Assessment / Plan
-
Assessment: 79 y/o male POD #4 status post lap julio; open repair incarcerated umbilical hernia
Gangrenous perforated acalculous cholecystitis
Generalized bile peritonitis
Sepsis secondary to perforated gangrenous cholecystitis (resolved)
Incarcerated umbilical hernia (s/p primary repair)
Postoperative urinary retention -requiring Cabrera catheter placement. Successful Void trial
Ileus beginning to resolve with passage of flatus, still with distention/hiccups. No Bm yet.
AFVSS
JPs serosang
Leukocytosis resolved
GLO improving
OR cultures:Citrobacter and Klebsiella, resistant to Ceftriaxone, switched to Ciprofloxacin on 12/30
Plan:
-- Fulls, Miralax plus.
-- Maintain JPs monitoring outputs
-- Abx: c/w Cirpo/Flagyl
-- OOB/ambulate, PT/OT orders renewed. Will likely need SNF upon d/c
-- Pain control: Tylenol, Oxycodone changed to Tylenol #3 as pt notes he tolerates this better, Dilaudid for breakthrough. Hold NSAIDs given initial GLO
-- DVT: SQH, SCDs
-- Medical management as per primary team
Subjective Data
-
Date of Service: December 31, 2024
Pt seen and examined at bedside. Denies n/v. Tolerating fulls but no appetite. Intermittent sharp pains to abdomen radiating up into right shoulder. Voiding well. Passing flatus, occasional hiccups. No Bm's as of yet. Occasional nausea after
analgesics
Objective Data
-
Intake and Output
12/30/24 12/31/24 01/01/25
06:59 06:59 06:59
Intake Total 240 / 240
Output Total 370 / 370 1295 / 1295
Balance -370 / -370 -1055 / -1055
Intake:
Oral fluids 240 / 240
Output:
Drain Output (Total) 70 / 70 145 / 145
Left Abdomen Michael-Valadez C 50 / 50 60 / 60
Right Middle Abdomen A 20
Right Middle Abdomen Michael- 65 / 65
Valadez B
Urine, Voided 300 / 300 1150 / 1150
Other:
Number of approximated LARGE 1
amounts of urine
Vital Signs
Temp Pulse Resp BP Pulse Ox
98.7 F 78 16 140/84 94
12/31/24 08:02 12/31/24 08:33 12/31/24 08:08 12/31/24 08:33 12/31/24 08:08
Lab Results
12/31/24 05:23
12/31/24 05:23
Calcium 7.9 mg/dl (8.4-10.2) L 12/31/24 05:23
Phosphorus 2.7 mg/dl (2.5-4.5) 12/29/24 05:51
Magnesium 2.3 mg/dl (1.6-2.3) 12/29/24 05:51
Total Bilirubin 0.4 mg/dl (0.2-1.3) 12/31/24 05:23
Direct Bilirubin 0.2 mg/dl (0.0-0.4) 12/29/24 05:51
AST 19 U/L (17-59) 12/31/24 05:23
ALT 43 U/L (0-50) 12/31/24 05:23
Alkaline Phosphatase 64 U/L (38-126) 12/31/24 05:23
Total Protein 5.6 g/dl (6.3-8.2) L 12/31/24 05:23
Albumin 2.9 g/dl (3.5-5.0) L 12/31/24 05:23
Physical Exam
-
Gen: NAD
Abd: soft, minimal tenderness, stable distension/obesity, non-peritoneal, incisions c/d/i - no erythema, ecchymosis or drainage, NANCY serosang, non-bilious
Patient has a cabrera catheter: No
Patient has a central line: No
[2024-12-31] MEDS: CIPRO 400 MG 200 IV ×2 (11:16→22:37)
[2024-12-31 12:16] VITALS: BP 150/80
--- NOTE | 2024-12-31 13:15 | W.PN.HOSP.TC ---
Today's Communication/Plan
-
monitor renal function
FLD
NANCY drains
Abx
Assessment / Plan
Assessment / Plan
Physical Exam
General:no respiratory distress
HEENT: Normocephalic and Anicteric. normal MM. Hard hearing.
Respiratory: Clear, limited, no wheezes.
Cardiac: Regular Rhythm
GI: soft,
Musculoskeletal: No Clubbing and No Cyanosis
Skin: Warm and Dry
Neuro: Awake, Alert and AO to self and surroundings.
Psych: Calm
# acute perforated gangrenous acalculous cholecystitis/ Generalized bile peritonitis/ Incarcerated umbilical hernia, ileus
Evolving Sepsis POA with organ dysfunction peritonitis/leukocytosis/tachycardia/ GLO
s/p Laparoscopic cholecystectomy, laparoscopic abdominal washout with drain placement, open primary repair incarcerated umbilical hernia.
Stopped IVF while tolerating oral liquids
No nausea, tolerated liquid diet
No fever, WBC is normal now.
PT/OT
IV Abx, changed to IV Cipro, flagyl per surgery according to the OR culture susceptibility
Cummings is out
Cont FLD
# Post op acute hypercapnic + hypoxic respiratory failure, s/p BiPAP - hypercapnia resolved, hypoxia markedly improved
c/w Nebulizer, encourage ambulation
resolved, on RA
# Acute post op blood loss anemia
Monitor
Transfuse if HGB less than 8
# hyponatremia
-monitor
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
Improved renal function.
Monitor for retention
-held SHRUB PLANTER Lisinopril/ Lasix, can resume
#BPH
-SHRUB PLANTER Dutasteride, Doxazosin
#Essential HTN
-Added PRN low dose oral Hydralazine
-Lisinopril & Lasix
-Added low dose amlodipine
-Resumed HS Doxazosin
Hx Prostate CA
-continue SHRUB PLANTER Bicalutamide upon discharge.
DVT PPx SQ heparin
Anticipated Discharge: Within 24 hours
Subjective/Interval History
-
Date of Service: December 31, 2024
no acute events overnight
Objective Data
-
Labs:
Laboratory Results
12/31/24
05:23
WBC 8.7
Hgb 10.8 L
Hct 34.3 L
Plt Count 156
Sodium 133 L
Potassium 4.4
Chloride 102
Carbon Dioxide 25
BUN 31 H
Creatinine 1.3
Glucose 118 H
Calcium 7.9 L
Total Bilirubin 0.4
AST 19
ALT 43
Alkaline Phosphatase 64
Vital Signs:
Vital Signs
Temp Pulse Resp BP Pulse Ox
98.7 F 78 16 140/84 94
12/31/24 08:02 12/31/24 08:33 12/31/24 08:08 12/31/24 08:33 12/31/24 08:08
I&O
12/30/24 12/31/24 01/01/25
06:59 06:59 06:59
Intake Total 240 / 240
Output Total 370 / 370 1295 / 1295
Balance -370 / -370 -1055 / -1055
Review of Systems
-
History Source: Patient
All other systems: Not reviewed unless documented
Data Reviewed
-
Diagnostic Radiology: Report Reviewed by me
Labs: Labs Reviewed by me
[2024-12-31 15:46] VITALS: BP 149/71
[2024-12-31] MEDS: CARDURA 2 MG PO (20:34)
[2024-12-31 23:27] VITALS: BP 123/78
[2025-01-01 05:41] LABS: Hematocrit 33.6 % (39.0-52.0); Hemoglobin 10.7 g/dL (13.0-18.0); Mean Corp Hgb Conc. 31.8 g/dL (33.0-37.0); Mean Corpuscular Volume 93.1 fL (80.0-94.0); Platelet Count 179 10^3/uL (130-400); Red Cell Dist. Width 13.3 % (11.5-14.5)
[2025-01-01 06:04] LABS: ALT (SGPT) 37 U/L (0-50); AST (SGOT) 21 U/L (17-59); Albumin 2.8 g/dl (3.5-5.0); Alkaline Phosphatase 64 U/L (38-126); Blood Urea Nitrogen 27 mg/dl (9-20); Calcium 7.9 mg/dl (8.4-10.2); Carbon Dioxide 26 mmol/L (22-30); Chloride 104 mmol/L (98-107); Estimated Creatinine Clearance 47 ml/min; Glucose 122 mg/dl (70-99); Potassium 4.3 mmol/L (3.5-5.1); Sodium 135 mmol/L (135-145); Total Protein 5.3 g/dl (6.3-8.2); eGFR 50.81
[2025-01-01 06:16] VITALS: BMI 30.8
[2025-01-01 07:36] VITALS: BP 167/74
--- NOTE | 2025-01-01 08:17 | W.PN.GS2 ---
Today's Communication / Plan
-
-- LRD
-- Maintain JPs monitoring outputs, will discuss with operative surgeon on beginning to remove
Assessment / Plan
-
Assessment: 79 y/o male POD #5 status post lap julio; open repair incarcerated umbilical hernia
Gangrenous perforated acalculous cholecystitis
Generalized bile peritonitis
Sepsis secondary to perforated gangrenous cholecystitis (resolved)
Incarcerated umbilical hernia (s/p primary repair)
Postoperative urinary retention - requiring Cabrera catheter placement. Successful Void trial
Ileus beginning to resolve with passage of flatus, still with distention/hiccups. No BM yet.
AFVSS
JPs serosang
Leukocytosis resolved
GLO improving
OR cultures:Citrobacter and Klebsiella, resistant to Ceftriaxone, switched to Ciprofloxacin on 12/30
Plan:
-- LRD
-- Maintain JPs monitoring outputs, will discuss with operative surgeon on beginning to remove
-- Abx: c/w Cirpo/Flagyl
-- OOB/ambulate, PT/OT orders renewed. Will likely need SNF upon d/c
-- Pain control: Tylenol, Oxycodone changed to Tylenol #3 as pt notes he tolerates this better, Dilaudid for breakthrough, hold NSAIDs given initial GLO
-- DVT: SQH, SCDs
-- Medical management as per primary team
Subjective Data
-
Date of Service: January 01, 2025
No major complaints. Denies worsening abdominal pain. No nausea or emesis. Passing flatus and large BM overnight
Objective Data
-
Intake and Output
12/31/24 01/01/25 01/02/25
06:59 06:59 06:59
Intake Total 240 / 240 1200 / 1200
Output Total 1295 / 1295 1914 / 1914
Balance -1055 / -1055 -715 / -715
Intake:
Oral fluids 240 / 240 1200 / 1200
Output:
Drain Output (Total) 145 / 145 140 / 140
Left Abdomen Michael-Valadez C 60 / 60 45 / 45
Right Middle Abdomen A 20 / 20 45 / 45
Right Middle Abdomen Michael- 65 / 65 50 / 50
Valadez B
Urine, Voided 1150 / 1150 1775 / 1775
Other:
How many times incontinent 1
SMALL amount urine
Vital Signs
Temp Pulse Resp BP Pulse Ox
98.9 F 74 16 167/74 95
01/01/25 07:36 01/01/25 07:36 01/01/25 07:36 01/01/25 07:36 01/01/25 07:36
Lab Results
01/01/25 05:15
01/01/25 05:15
Calcium 7.9 mg/dl (8.4-10.2) L 01/01/25 05:15
Phosphorus 2.7 mg/dl (2.5-4.5) 12/29/24 05:51
Magnesium 2.3 mg/dl (1.6-2.3) 12/29/24 05:51
Total Bilirubin 0.4 mg/dl (0.2-1.3) 01/01/25 05:15
Direct Bilirubin 0.2 mg/dl (0.0-0.4) 01/01/25 05:15
AST 21 U/L (17-59) 01/01/25 05:15
ALT 37 U/L (0-50) 01/01/25 05:15
Alkaline Phosphatase 64 U/L (38-126) 01/01/25 05:15
Total Protein 5.3 g/dl (6.3-8.2) L 01/01/25 05:15
Albumin 2.8 g/dl (3.5-5.0) L 01/01/25 05:15
Physical Exam
-
Gen: NAD
Abd: soft, NT, distended (stable), non-peritoneal, incisoins c/d/i - no erythema, ecchymosis or drainage, JPs serosang, non-bilious
Patient has a cabrera catheter: No
Patient has a central line: No
[2025-01-01] MEDS: FLAGYL 500 MG 100 IV ×2 (08:27→20:06)
[2025-01-01] MEDS: MIRALAX 17 GRAMS PO (08:27)
[2025-01-01] MEDS: RESTASIS 0.05% OPHTHALMIC EMULSION 1 DROPS BOTH EYES ×2 (08:28→20:07)
[2025-01-01] MEDS: LASIX 20 MG PO (08:28)
[2025-01-01] MEDS: ZESTRIL 10 MG PO (08:28)
[2025-01-01] MEDS: NORVASC 5 MG PO (08:28)
[2025-01-01] MEDS: NSS (PRESERVATIVE FREE) 10 ML IV (08:29)
[2025-01-01] MEDS: HEPARIN 5000 UNITS SC ×3 (08:29→23:08)
[2025-01-01] MEDS: PROTONIX IV 40 MG IV (08:29)
[2025-01-01] MEDS: CIPRO 400 MG 200 IV ×2 (09:56→21:55)
--- NOTE | 2025-01-01 13:23 | PTOTSP ---
Speech Therapy Evaluation:
Completed bedside swallow evaluation. Since brief intubation for OR, pt reported increased effort with swallowing. Specifically, pt reported sensation of a 'chicken bone' in the back of his throat, requiring PO to 'go over it.' No visible/palpable
abnormalities during OME. With PO trials, oral phase appeared WFL. No overt s/sx of aspiration, however suspect pharyngeal vs esophageal component with one occasion of belching followed by subtle wet vocal quality. Most recent CXR indicative of
atelectasis, pt without dysphagia hx, and pt on room air.
Recommend:
1. Regular solids and thin liquids
2. Meds as tolerated
3. Strict aspiration and reflux precautions
4. SKELP PROCESSOR to follow to monitor tolerance of diet and determine if pt would benefit from instrumental assessment via FEES for direct visualization of pharynx
--- NOTE | 2025-01-01 13:24 | W.PN.HOSP.TC ---
Today's Communication/Plan
-
Adv to LRD
NANCY drain acare as per surgery
Nystatin swish and swallow
Speech eval on going +/- FEES
Assessment / Plan
Assessment / Plan
Physical Exam
General:no respiratory distress
HEENT: Normocephalic and Anicteric. normal MM. Hard hearing.
Respiratory: Clear, limited, no wheezes.
Cardiac: Regular Rhythm
GI: soft,
Musculoskeletal: No Clubbing and No Cyanosis
Skin: Warm and Dry
Neuro: Awake, Alert and AO to self and surroundings.
Psych: Calm
# acute perforated gangrenous acalculous cholecystitis/ Generalized bile peritonitis/ Incarcerated umbilical hernia, ileus
Evolving Sepsis POA with organ dysfunction peritonitis/leukocytosis/tachycardia/ GLO
s/p Laparoscopic cholecystectomy, laparoscopic abdominal washout with drain placement, open primary repair incarcerated umbilical hernia.
Stopped IVF while tolerating oral liquids
No nausea, tolerated liquid diet
No fever, WBC is normal now.
PT/OT
IV Abx, changed to IV Cipro, flagyl per surgery according to the OR culture susceptibility
Cummings is out
Advance to low residue diet
NANCY drains in place, await surgery recommendations for removal
# Post op acute hypercapnic + hypoxic respiratory failure, s/p BiPAP - hypercapnia resolved, hypoxia markedly improved
c/w Nebulizer, encourage ambulation
resolved, on RA
# Acute post op blood loss anemia
Monitor
Transfuse if HGB less than 8
#Oral thrush
- Initiate nystatin 4 times daily
#Dysphagia
� Speech eval performed, continue regular diet, thin liquid
-Await recommendations from speech for FEES
# hyponatremia
-monitor
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
Improved renal function.
Monitor for retention
-held PRODUCE RUNNER Lisinopril/ Lasix, can resume
#BPH
-PRODUCE RUNNER Dutasteride, Doxazosin
#Essential HTN
-Added PRN low dose oral Hydralazine
-Lisinopril & Lasix
-Added low dose amlodipine
-Resumed HS Doxazosin
Hx Prostate CA
-continue PRODUCE RUNNER Bicalutamide upon discharge.
DVT PPx SQ heparin
Anticipated Discharge: 24 - 48 hours
Subjective/Interval History
-
Date of Service: January 01, 2025
Tolerated liquid diet, advance to low residue
Objective Data
-
Labs:
Laboratory Results
01/01/25
05:15
WBC 8.8
Hgb 10.7 L
Hct 33.6 L
Plt Count 179
Sodium 135
Potassium 4.3
Chloride 104
Carbon Dioxide 26
BUN 27 H
Creatinine 1.4 H
Glucose 122 H
Calcium 7.9 L
Total Bilirubin 0.4
AST 21
ALT 37
Alkaline Phosphatase 64
Vital Signs:
Vital Signs
Temp Pulse Resp BP Pulse Ox
98.9 F 74 16 167/74 95
01/01/25 07:36 01/01/25 08:28 01/01/25 07:36 01/01/25 08:28 01/01/25 07:36
I&O
12/31/24 01/01/25 01/02/25
06:59 06:59 06:59
Intake Total 240 / 240 1200 / 1200
Output Total 1295 / 1295 1915 / 1915
Balance -1055 / -1055 -715 / -715
Review of Systems
-
History Source: Patient
All other systems: Not reviewed unless documented
Data Reviewed
-
Diagnostic Radiology: Report Reviewed by me
Labs: Labs Reviewed by me
[2025-01-01 15:16] VITALS: BP 127/65
--- NOTE | 2025-01-01 17:27 | CM ---
SNF recommended by PT and OT; authorization will be needed with [facility] when medically cleared.
[2025-01-01] MEDS: MYCOSTATIN ORAL SUSPENSION 5 ML PO ×2 (17:59→21:55)
[2025-01-01] MEDS: CARDURA 2 MG PO (21:55)
[2025-01-01 22:52] VITALS: BP 157/71
--- NOTE | 2025-01-02 03:02 | DOWNTIME ---
There was a [employer] Supervisor Downtime on 01/02/2025 from 0100 to 01/02/2025 at 0255. Downtime documentation of patient's care, including medication administrations, has been reconciled in the electronic record per guidelines. Refer to the
patient's paper chart under the miscellaneous tab to see printed paper medication records and downtime forms.
[2025-01-02 05:07] VITALS: BMI 30.2
[2025-01-02 06:05] LABS: Hematocrit 30.6 % (39.0-52.0); Hemoglobin 10.4 g/dL (13.0-18.0); Mean Corp Hgb Conc. 34.0 g/dL (33.0-37.0); Mean Corpuscular Volume 90.8 fL (80.0-94.0); Platelet Count 218 10^3/uL (130-400); Red Cell Dist. Width 13.2 % (11.5-14.5)
[2025-01-02 06:06] LABS: Blood Urea Nitrogen 26 mg/dl (9-20); Calcium 7.8 mg/dl (8.4-10.2); Carbon Dioxide 26 mmol/L (22-30); Chloride 103 mmol/L (98-107); Estimated Creatinine Clearance 46 ml/min; Glucose 124 mg/dl (70-99); Potassium 4.4 mmol/L (3.5-5.1); Sodium 131 mmol/L (135-145); eGFR 50.81
[2025-01-02] MEDS: MYCOSTATIN ORAL SUSPENSION 5 ML PO ×3 (07:38→17:06)
[2025-01-02] MEDS: FLAGYL 500 MG 100 IV (07:38)
[2025-01-02] MEDS: PROTONIX IV 40 MG IV (07:39)
[2025-01-02] MEDS: HEPARIN 5000 UNITS SC ×2 (07:39→17:02)
[2025-01-02] MEDS: RESTASIS 0.05% OPHTHALMIC EMULSION 1 DROPS BOTH EYES (07:39)
[2025-01-02] MEDS: MIRALAX 17 GRAMS PO (07:41)
[2025-01-02] MEDS: NSS (PRESERVATIVE FREE) 10 ML IV (07:41)
[2025-01-02] MEDS: NORVASC 5 MG PO (07:42)
[2025-01-02] MEDS: LASIX 20 MG PO (07:45)
[2025-01-02] MEDS: ZESTRIL 10 MG PO (08:01)
[2025-01-02 08:12] VITALS: BP 149/67
--- NOTE | 2025-01-02 08:30 | W.PN.GS2 ---
Today's Communication / Plan
-
`
Assessment / Plan
-
Assessment: 79 y/o male POD #6 status post lap julio; open repair incarcerated umbilical hernia
OR cultures:Citrobacter and Klebsiella, resistant to Ceftriaxone, switched to Ciprofloxacin on 12/30
AFVSS
Doing well postop; ileus resolved
JPx3 clear, serous, nonbilious, nonpurulent-removed all 3 today 01/02/2025
Plan:
-- LRD
-- Abx: c/w Cirpo/Flagyl -for a 10-day total course of postoperative antibiotics
Okay for discharge/dispo planning from surgical standpoint. Transition to oral antibiotics on discharge with a total of 10-day course postop currently day 07/24
Outpatient surgical follow-up in 2 to 3 weeks
Subjective Data
-
Date of Service: January 02, 2025
Patient seen and examined.
Tolerating p.o. intake generally well. Occasional slight nausea.
Passing flatus and has had multiple bowel movements.
Mild postoperative incisional pain, no significant abdominal pain
Voiding
Objective Data
-
Intake and Output
01/01/25 01/02/25 01/03/25
06:59 06:59 06:59
Intake Total 1200 / 1200 1560 / 1560
Output Total 1914 / 1914 1414 / 1414
Balance -715 / -715 146 / 146
Intake:
Oral fluids 1200 / 1200 1560 / 1560
Output:
Drain Output (Total) 140 / 140 99 / 99
Left Abdomen Michael-Valadez C 45 / 45 58 / 58
Right Middle Abdomen A 45 / 45 8 / 8
Right Middle Abdomen Michael- 50 / 50 33 / 33
Valadez B
Urine, Voided 177 / 5 1315 / 1315
Other:
How many times incontinent 1
SMALL amount urine
Vital Signs
Temp Pulse Resp BP Pulse Ox
98.1 F 69 16 149/67 96
01/02/25 08:12 01/02/25 08:12 01/02/25 08:12 01/02/25 08:12 01/02/25 08:12
Lab Results
01/02/25 05:14
01/02/25 05:14
Calcium 7.8 mg/dl (8.4-10.2) L 01/02/25 05:14
Phosphorus 2.7 mg/dl (2.5-4.5) 12/29/24 05:51
Magnesium 2.3 mg/dl (1.6-2.3) 12/29/24 05:51
Total Bilirubin 0.4 mg/dl (0.2-1.3) 01/01/25 05:15
Direct Bilirubin 0.2 mg/dl (0.0-0.4) 01/01/25 05:15
AST 21 U/L (17-59) 01/01/25 05:15
ALT 37 U/L (0-50) 01/01/25 05:15
Alkaline Phosphatase 64 U/L (38-126) 01/01/25 05:15
Total Protein 5.3 g/dl (6.3-8.2) L 01/01/25 05:15
Albumin 2.8 g/dl (3.5-5.0) L 01/01/25 05:15
Physical Exam
-
NAD AAO x 3
ABD: softly protuberant but not tensely distended. Umbilical herniorrhaphy site and laparoscopic sites healing well with glue dressings. No hematomas. No seromas.
NANCY x 3 all with light serosanguineous fluid. Nonbilious. Nonpurulent.
[2025-01-02 09:35] VITALS: BP 114/70; BP 160/65; PULSE 75; O2SAT 98
[2025-01-02 10:06] VITALS: BP 114/70; BP 160/65; PULSE 73; O2SAT 98
[2025-01-02] MEDS: CIPRO 400 MG 200 IV (10:31)
--- NOTE | 2025-01-02 12:03 | W.PN.HOSP.TC ---
Addendum entered and electronically signed by Guzman Ayala MD 01/05/25 14:57:
Sepsis ruled out, peritonitis and acute perforated gangrenous acalculous cholecystitis only
Addendum entered and electronically signed by Guzman Ayala MD 01/03/25 14:52:
[id number]
Original Note:
Today's Communication/Plan
-
Abx course
F/u GI, Surgery, PCP outpt
LRD
FWR
F/u BMP outpt
Assessment / Plan
Assessment / Plan
Physical Exam
General:no respiratory distress
HEENT: Normocephalic and Anicteric. normal MM. Hard hearing.
Respiratory: Clear, limited, no wheezes.
Cardiac: Regular Rhythm
GI: soft,
Musculoskeletal: No Clubbing and No Cyanosis
Skin: Warm and Dry
Neuro: Awake, Alert and AO to self and surroundings.
Psych: Calm
# acute perforated gangrenous acalculous cholecystitis/ Generalized bile peritonitis/ Incarcerated umbilical hernia, ileus
Evolving Sepsis POA with organ dysfunction peritonitis/leukocytosis/tachycardia/ GLO
s/p Laparoscopic cholecystectomy, laparoscopic abdominal washout with drain placement, open primary repair incarcerated umbilical hernia.
Stopped IVF while tolerating oral liquids
No nausea, tolerated liquid diet
No fever, WBC is normal now.
PT/OT
IV Abx, changed to IV Cipro, flagyl per surgery according to the OR culture susceptibility
Cumm[place] is out
Tolerating low residue diet
NANCY drains removed
Abx x 10 days post op - Cipro/Flagyl
# Post op acute hypercapnic + hypoxic respiratory failure, s/p BiPAP - hypercapnia resolved, hypoxia markedly improved
c/w Nebulizer, encourage ambulation
resolved, on RA
# Acute post op blood loss anemia
Monitor
Transfuse if HGB less than 8
#Oral thrush
- Initiate nystatin 4 times daily
#Dysphagia
� Speech eval performed, continue regular diet, thin liquid
-F/u GI outptient
-FEES outpatient if needed
# hyponatremia
-monitor
-FWR
-F/u BMP in 1 week
-diuretics
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
Improved renal function.
Monitor for retention
-held HOB MACHINE OPERATOR Lisinopril/ Lasix, can resume
#BPH
-HOB MACHINE OPERATOR Dutasteride, Doxazosin
#Essential HTN
-Added PRN low dose oral Hydralazine
-Lisinopril & Lasix
-Added low dose amlodipine
-Resumed HS Doxazosin
Hx Prostate CA
-continue HOB MACHINE OPERATOR Bicalutamide upon discharge.
DVT PPx SQ heparin
More than 30 minutes spent in discharge including
Final examination of the patient
Summarizing hospital stay
Instructions for continuing care to all relevant caregivers
Preparation of discharge records, prescriptions, and referral forms
Total time spent (in minutes): 36
Anticipated Discharge: Today
Subjective/Interval History
-
Date of Service: January 02, 2025
no acute events
Objective Data
-
Labs:
Laboratory Results
01/02/25
05:14
WBC 8.6
Hgb 10.4 L
Hct 30.6 L
Plt Count 218 D
Sodium 131 L
Potassium 4.4
Chloride 103
Carbon Dioxide 26
BUN 26 H
Creatinine 1.4 H
Glucose 124 H
Calcium 7.8 L
Vital Signs:
Vital Signs
Temp Pulse Resp BP Pulse Ox
98.1 F 69 16 149/67 96
01/02/25 08:12 01/02/25 08:12 01/02/25 08:12 01/02/25 08:12 01/02/25 08:12
I&O
01/01/25 01/02/25 01/03/25
06:59 06:59 06:59
Intake Total 1200 / 1200 1560 / 1560
Output Total 1915 / 1915 1414 / 1414
Balance -715 / -715 146 / 146
Review of Systems
-
History Source: Patient
All other systems: Not reviewed unless documented
Data Reviewed
-
Diagnostic Radiology: Report Reviewed by me
MRI: Report Reviewed by me
Labs: Labs Reviewed by me
--- NOTE | 2025-01-02 12:10 | W.DS.TRANS ---
DC Summary - Hospital Recruiter
-
Discharge Instructions:
Discharge Diagnosis/Procedures Gangrenous, perforated cholecystitis with bile
peritonitis. Laparoscopic cholecystectomy, open
repair of incarcerated umbilical hernia.
Diet Low Fat
Additional Diets Switch to a low fat diet for the next few weeks
if you notice loose stools after your surgery
Activity No strenuous activity
Additional Activity Do not lift over 20lbs for the next 2-3 weeks
Bathing Restrictions OK to Shower
Blood Work cbc and cmp in 1 week with pcp
Wound Care Allow the glue to flake off your incisions on
its own over the next 2-3 weeks. Cover old
drain sites with dry gauze dressing until dry.
Change daily and as needed for drainage. May
leave sites open to air after dry scab forms.
Instructions:
Stand-Alone Forms:
Changes to Home Medications: Yes
Discharge Medications:
DC Medications w/original date entered in [facility]
doxazosin 2 mg tablet 2 mg PO HS Blood pressure 04/13/20
dutasteride 0.5 mg capsule (Avodart) 0.5 mg PO HS Urinary issue 04/13/20
loperamide 2 mg capsule 2 mg PO Q6HPRN PRN DIARRHEA 04/13/20
acetaminophen 325 mg tablet 650 mg PO Q4HPRN PRN mild pain 12/26/24
aspirin 325 mg tablet 325 mg PO HS Blood Clot Prevention/Tx 12/26/24
bicalutamide 50 mg tablet 50 mg PO HS prostate issue 12/26/24
cyclosporine 0.05 % eye drops in a dropperette 1 drp BOTH EYES BID dry eye 12/26/24
furosemide 20 mg tablet 20 mg PO DAILY@1400 Fluid Retention/Swelling 12/26/24
lisinopril 10 mg tablet 10 mg PO HS Blood Pressure 12/26/24
amlodipine 5 mg tablet 5 mg PO DAILY 30 days #30 tabs 01/02/25
ciprofloxacin HCl 500 mg tablet 500 mg PO Q12H 7 days #14 tabs 01/02/25
metronidazole 500 mg tablet 500 mg PO Q12H 5 days #10 tabs 01/02/25
nystatin 100,000 unit/mL oral suspension 5 ml PO QID #500 mL 01/02/25
Home Medication Changes
amlodipine 5 mg tablet 5 mg PO DAILY 30 days #30 tabs 01/02/25
ciprofloxacin HCl 500 mg tablet 500 mg PO Q12H 7 days #14 tabs 01/02/25
metronidazole 500 mg tablet 500 mg PO Q12H 5 days #10 tabs 01/02/25
nystatin 100,000 unit/mL oral suspension 5 ml PO QID #500 mL 01/02/25
Pending Results: No
--- NOTE | 2025-01-02 13:11 | PN.CDI ---
CDI
- -
CDI:
Physician Documentation Request
Admit Date: 12/26/24 14:26
Dear ,
Sepsis without organ dysfunction is no longer used within our health system. These cases are now coded as the primary infection, not as sepsis.
[facility] is using an adapted version of the 2016 Third International Consensus Definitions for Sepsis and Septic Shock (Sepsis-3) where sepsis is defined as life threatening organ dysfunction caused by a deregulated host response to infection.
Please reference the official [facility] Sepsis Recognition Tool for further information, which is available on the Intranet under Infection Prevention.
Clinical Indicators Include:
Patient admitted with acute perforated gangrenous acalculous cholecystitis/ Generalized bile peritonitis/ Incarcerated umbilical hernia, ileus
Progress Notes state 'Evolving Sepsis POA with organ dysfunction peritonitis/leukocytosis/tachycardia/ GLO '
Per response to query 12/28 GLO was ruled out
Based on your medical judgment, please review the documentation pertaining to Sepsis due to peritonitis and further clarify the clinical indicators and any organ dysfunction associated with the diagnosis, if applicable:
� Sepsis ruled out, peritonitis only
� Sepsis due to peritonitis with organ dysfunction of
� Other
� Clinically Unable to Determine
Use of terms such as suspected, likely, concern for, or probable (associated with a specific diagnosis that is being evaluated, monitored, or treated as if it exists) are acceptable and can be coded in the inpatient setting when documented at the
time of discharge.
Please use your independent medical judgement in providing your response.
Thank you,
Diana Goddard RN, BSN
CDI Specialist
tiger text
--- NOTE | 2025-01-02 13:22 | CM ---
Addendum entered by Deborah Ndiaye 01/02/25 14:41:
TC from Teresa at [facility] ([facility]), she just found out patient is Medicare A primary, FEP secondary.
TC to Mar[facility] in [facility], she verified Medicare A is primary.
TC to Joy at [facility], she jenkins been updated re insurance and has patients Medicare Number.
Please call Joy at [facility] with transportation time.
Addendum entered by Deborah Ndiaye 01/02/25 14:11:
CM form faxed to [facility].
Original Note:
Insurance authorization initiated with [facility] at [phone]
spoke with Teresa, she looked at benefits, patient has a Basic Plan- no Skilled rehab benefit.
Need to get [facility] CASE MANAGEMENT PROGRAM CONSENT FORM signed by member. (Found on [email or web address] under forms) and fax to [phone].
Case will be reviewed for case exception, await determination.
--- NOTE | 2025-01-02 14:57 | CM ---
Pt cleared for discharge to [facility] today; pt agreeable to returning to [place]. IMM reviewed and signed.
Ambulance transport requested.
[facility] report: [phone]
[facility]
[2025-01-02 15:30] VITALS: BP 109/56
== END 2025-01-02 19:04 | DRG 853 ==
LOC: 3 WEST ACU 14:26
PROVIDERS: Internal Medicine; Nurse Practitioner Primary Care; Registered Nurse; Student in an Organized Health Care Education/Training Program; Surgery; ADMITTING PHYSICIAN Student in an Organized Health Care Education/Training Program; ATTENDING PHYSICIAN Internal Medicine; CONSULT PHYSICIAN Internal Medicine Critical Care Medicine; CONSULT PHYSICIAN Internal Medicine Gastroenterology; EMERGENCY PHYSICIAN Student in an Organized Health Care Education/Training Program; FAMILY PHYSICIAN Family Medicine; OTHER PHYSICIAN Surgery
PROC: 0WQF4ZZ Repair Abdominal Wall, Percutaneous Endoscopic Approach (ICD-10-PCS; 2024-12-27)
PROC: 0FT44ZZ Resection of Gallbladder, Percutaneous Endoscopic Approach (ICD-10-PCS; 2024-12-27)
DX: A41.9 Sepsis, unspecified organism (principal); J96.91 Respiratory failure, unspecified with hypoxia; K65.3 Choleperitonitis; K81.0 Acute cholecystitis; K56.7 Ileus, unspecified; K42.0 Umbilical hernia with obstruction, without gangrene; E87.1 Hypo-osmolality and hyponatremia; K82.A2 Perforation of gallbladder in cholecystitis; N17.9 Acute kidney failure, unspecified; Q89.09 Congenital malformations of spleen; R18.8 Other ascites; D62 Acute posthemorrhagic anemia; K82.A1 Gangrene of gallbladder in cholecystitis; E66.9 Obesity, unspecified; Z68.30 Body mass index [BMI] 30.0-30.9, adult; I10 Essential (primary) hypertension; R65.20 Severe sepsis without septic shock; Z79.82 Long term (current) use of aspirin; Z87.891 Personal history of nicotine dependence
CPT/HCPCS: 71045; 74018; 74177; 74181; 76705; 80048; 80053; 81003; 81015; 82248; 82330; 82805; 82962; 83690; 83735; 84100; 84132; 84302; 85025; 85027; 85610; 85730; 87070; 87077; 87176; 87186; 87205; 88304; 88341; 88342; 92610; 93005; 94640; 94660; 96361; 96374; 96375; 97110; 97116; 97163; 97167; 97530; 97535; 99285; A4300; Q9967

== ENCOUNTER → 2025-01-07 09:42 | Outpatient (REF) | payer OTHER, MEDICARE, BC, SELFPAY ==
[2025-01-07 11:05] LABS: Hematocrit 28.2 % (39.0-52.0); Hemoglobin 9.2 g/dL (13.0-18.0); Mean Corp Hgb Conc. 32.6 g/dL (33.0-37.0); Mean Corpuscular Volume 90.7 fL (80.0-94.0); Platelet Count 309 10^3/uL (130-400); Red Cell Dist. Width 13.9 % (11.5-14.5)
[2025-01-07 11:43] LABS: ALT (SGPT) 19 U/L (0-50); AST (SGOT) 15 U/L (17-59); Albumin 2.6 g/dl (3.5-5.0); Alkaline Phosphatase 63 U/L (38-126); Blood Urea Nitrogen 34 mg/dl (9-20); Calcium 7.9 mg/dl (8.4-10.2); Carbon Dioxide 23 mmol/L (22-30); Chloride 107 mmol/L (98-107); Glucose 102 mg/dl (70-99); Magnesium 2.1 mg/dl (1.6-2.3); Potassium 4.8 mmol/L (3.5-5.1); Sodium 133 mmol/L (135-145); Total Protein 5.4 g/dl (6.3-8.2); eGFR 35.22
== END ==
LOC: OLABWHC 09:42
PROVIDERS: ATTENDING PHYSICIAN Family Medicine
DX: K81.0 Acute cholecystitis (principal); C61 Malignant neoplasm of prostate; N17.9 Acute kidney failure, unspecified; N40.0 Benign prostatic hyperplasia without lower urinary tract symptoms
CPT/HCPCS: 36415; 80053; 83735; 85027

== ENCOUNTER → 2025-01-14 11:42 | Outpatient (REF) | payer OTHER, MEDICARE, BC, SELFPAY ==
[2025-01-14 12:36] LABS: Hematocrit 28.6 % (39.0-52.0); Hemoglobin 9.5 g/dL (13.0-18.0); Mean Corp Hgb Conc. 33.2 g/dL (33.0-37.0); Mean Corpuscular Volume 92.0 fL (80.0-94.0); Nucleated Red Blood Cells % 0 % (-); Platelet Count 203 10^3/uL (130-400); Red Cell Dist. Width 13.6 % (11.5-14.5)
[2025-01-14 12:47] LABS: Blood Urea Nitrogen 29 mg/dl (9-20); Calcium 8.0 mg/dl (8.4-10.2); Carbon Dioxide 24 mmol/L (22-30); Chloride 103 mmol/L (98-107); Glucose 114 mg/dl (70-99); Potassium 4.7 mmol/L (3.5-5.1); Sodium 132 mmol/L (135-145); eGFR 43.29
== END ==
LOC: OLABWHC 11:42
PROVIDERS: ATTENDING PHYSICIAN Family Medicine
DX: K81.0 Acute cholecystitis (principal); E87.1 Hypo-osmolality and hyponatremia
CPT/HCPCS: 36415; 80048; 85025

== ENCOUNTER 2025-01-20 14:00 | Observation (INO) | payer MEDICARE, BC, SELFPAY ==
[2025-01-20] VITALS (19 sets, daily range): BP systolic 116–156; BP diastolic 48–114; BMI 29.2; BMI 29.0
[2025-01-20 06:41] LABS: Hematocrit 31.8 % (39.0-52.0); Hemoglobin 10.7 g/dL (13.0-18.0); Mean Corp Hgb Conc. 33.6 g/dL (33.0-37.0); Mean Corpuscular Volume 90.3 fL (80.0-94.0); Nucleated Red Blood Cells % 0 % (-); Platelet Count 195 10^3/uL (130-400); Red Cell Dist. Width 13.3 % (11.5-14.5)
[2025-01-20 06:53] LABS: ALT (SGPT) 20 U/L (0-50); AST (SGOT) 19 U/L (17-59); Albumin 3.8 g/dl (3.5-5.0); Alkaline Phosphatase 87 U/L (38-126); Blood Urea Nitrogen 38 mg/dl (9-20); Calcium 8.7 mg/dl (8.4-10.2); Carbon Dioxide 20 mmol/L (22-30); Chloride 107 mmol/L (98-107); Glucose 113 mg/dl (70-99); Potassium 5.3 mmol/L (3.5-5.1); Sodium 135 mmol/L (135-145); Total Protein 7.1 g/dl (6.3-8.2); eGFR 37.58
--- NOTE | 2025-01-20 07:40 | ED.GENMED ---
History of Present Illness
General
Chief Complaint: Change in Mental Status
Source: patient and family (son)
Exam Limitations: none
Time Seen by Provider: 01/20/25 06:48
Nursing documentation reviewed up to this point in time: agreed with
History of Present Illness
History of Present Illness:
The patient is an 79-year-old man with a past medical history of high blood pressure and prostate cancer who lives alone in [place] [facility] [place]. Patient arrived by ambulance with complaints of feeling ' revved up and freaky'. His son is at
the bedside and reports that ever since his father had anesthesia for gallbladder surgery about 3 weeks ago, he has had ' a change in personality' and appears to have constant ' pressured speech'. Son reports that his father has not stopped
speaking. He reports that his father seems to be fixated on certain things, such as the genealogy of the family. Additionally, for the first time his father had a visual hallucination yesterday. The patient describes seeing a young woman that was
an alexus try to kiss him. He denies any auditory hallucinations. He reports he does not feel paranoid and does not feel anybody is after him. He does not feel that the TV is speaking to him. He is aware that he has been speaking a lot but is
unable to control it and admits that it does not really bother him. His son denies any new medication. He denies drug and alcohol use. He reports that his father always stays up late and sleeps late, and that his sleeping pattern does not seem to
have changed. He denies any changes of his diet and reports that if anything he has decreased his caffeine intake. And was recently admitted for gangrenous gallbladder a few weeks ago and underwent surgery. His son reports that ever since then
these changes have occurred.
Past History
Past History
ED Past Medical History: Cancer (Prostate cancer) and HTN
ED Past Surgical History: Cholecystectomy and Tonsilectomy
Social History
Tobacco: Former smoker
Alcohol: None
Drug: None
Personal:
Living: alone
Employment: Retired
Family History
Family History: Other
Review of Systems
Review of Systems
Allergies reviewed?: Yes
All Other Systems: ROS reviewed and negative except as documented in HPI and ROS
Constitutional: Reports no symptoms
EENT: Reports no symptoms
Respiratory: Reports no symptoms
Cardiac: Reports no symptoms
ABD/GI: Reports no symptoms
: Reports no symptoms
Musculoskeletal: Reports no symptoms
Skin: Reports no symptoms
Neurological: Reports other (Visual hallucinations)
Endocrine: Reports no symptoms
Hematologic/Lymphatic: Reports no symptoms
Psychiatric: Reports hallucinations; Denies anxiety or suicidal
Phy Exam
Physical Exam
Physical Exam:
Physical Exam
General: Patient appears fully awake, alert and oriented x 3. Frequent flight of ideas, pressured speech
Neck: supple. no meningeal signs. normal psoterior pharynx
Heart: s1/s2 regular rate and rhythm, no murmur. equal radial pulses.
Lungs: no acute respiratory distress. clear bilaterally
Abdomen: normal bowel sounds. not tender. no CVAT
Neuro: alert and oriented x 3. no focal neurological deficits. Able to follow all commands appropriately.
Skin: no rash
Psychiatric: well kept. interactive and cooperative
Extremities: no edema. no calf tenderness. negative homans. good distal pulses
Course
Orders/Labs/Results
Orders:
Orders
01/20/25 06:25
Alcohol Urgent
CMP [Comprehensive Metabolic Panel] Urgent
Complete Blood Count/With Diff Urgent
TSH Urgent
Comment: ADD ON
01/20/25 06:44
Add On- LAB Urgent
Tests Added?: serum alcohol level
01/20/25 07:30
Urinalysis Reflex To Culture Urgent
Date Specimen was Collected: 01/20/25
Time Specimen was Collected: 07:15
Urine Drug Abuse Screen Urgent
Date Specimen was Collected: 01/20/25
Time Specimen was Collected: 07:15
Urine Microscopic Reflex Cult Urgent
01/20/25 07:37
0.9% Sodium Chloride 1000 ml [Nss] 1,000 ml IV BOLUS
01/20/25 07:38
CT Head W/o Iv Contrast Urgent
Comment:
Reason For Exam: MS change
01/20/25 07:47
Add On- LAB Urgent
Tests Added?: TSH
01/20/25 07:50
COVID-19 Antigen Urgent
Source: Nasal Swab
Influenza A+B Rapid Molecular Urgent
ISAIAH Source: Nasal Swab
Specimen Description:
01/20/25 07:51
PSYCHIATRY CONSULT Urgent
Consulting Provider: Oriana Butts
Was physician already notified: Yes
Reason for consult: acute nga
01/20/25 08:02
Electrocardiogram (*1) Urgent
Reason for Study: Other
Other Reason for Exam: MS change
EKG- Treatment ONCE
01/20/25 09:00
Acetaminophen [Tylenol] 1,000 mg PO NOW STA
Abnormal Lab Results
01/20/25 01/20/25
06 07:30
RBC 3.52 L 10^6/uL
(4.70-6.10)
Hgb 10.7 L g/dL
(13.0-18.0)
Hct 31.8 L %
(39.0-52.0)
Absolute Monos (auto) 0.7 H 10^3/uL
(0.1-0.6)
Potassium 5.3 H mmol/L
(3.5-5.1)
Carbon Dioxide 20 L mmol/L
(22-30)
BUN 38 H mg/dl
(9-20)
Creatinine 1.8 H mg/dL
(0.7-1.3)
Glucose 113 H mg/dl
(70-99)
Urine Albumin (Reflex) 1+ A
(Neg - Trace)
01/20/25 06:25
01/20/25 06:25
Vital Signs
Initial and Last Documented VS:
Initial Vital Signs
Temp Pulse Resp BP Pulse Ox
98.4 F 67 18 151/64 99
01/20/25 06:07 01/20/25 06:07 01/20/25 06:07 01/20/25 06:07 01/20/25 06:07
Last Documented Vital Signs
Temp Pulse Resp BP Pulse Ox
97.8 F 67 20 129/99 99
01/20/25 08:00 01/20/25 12:00 01/20/25 12:00 01/20/25 12:00 01/20/25 12:00
MDM/Problems Addressed
Differential Diagnosis Includes:
Acute nga, UTI, intracranial mass
MDM/Problems Addressed:
Patient presents with acute pressured speech and flight of ideas
Chronic conditions affecting care: HTN
Acute Exacerbation and/or Progression of Chronic Illness:
Perhaps blood pressure elevation is causing an encephalopathy, however, patient is fully awake, alert and oriented x 3 and blood pressure is only slightly elevated. Therefore, this is doubtful.
Acute Exacerbation and/or Progression of Chronic Illness: HTN
*Pulse Oximetry
SaO2: 100
Oxygen Mode of Delivery: Room air
Patient hypoxic: no
*EKG
Interpreted by ED Provider?: Yes
Interpretation: normal
Comparison EKG: no comparison EKG present
Rate: normal
Rhythm: sinus
[place]: normal axis
Interval: normal interval
QRS Pattern: normal QRS
Ischemia: no ischemia
*[employer] Tester Interpretation
Rate: normal
Interpretation: normal
Rhythm: sinus
*Critical Care Note
Total Time (30-74mins, 75-104mins- exclusive of procedures): Not Applicable
Data Reviewed
Review of Other/Old Records Reveals: Discharge Summary (Recent discharge summary reviewed from when patient was admitted for gangrenous gallbladder and underwent surgery)
Source: patient
Update Note
Update Note:
Psychiatry consult done. Psychiatrist thinks that there is an underlying neurological issue, including possible dementia.
I did reach out to Dr. Yan from neurology who agreed to see the patient on consult while he is admitted to the hospital
ED Attending Note
-
Portions of this chart may have been created with voice recognition software.� Occasional wrong word or��sound alike� substitutions may have occurred due to the inherent limitations of voice recognition software.
Discharge Plan
Departure
Patient Disposition: Admit
Date of Disposition: 01/20/25
Time of Disposition: 12:53
Admit to: Med/Surg
Presentation/result/management discussed w/ accepting MD/DO: Hospitalist
Patient with high blood pressure during this ER visit?: Yes
Condition: Good
Covid-19: Not Applicable
Discharge Problem:
Acute alteration in mental status
Prescriptions:
No Action
doxazosin 2 MG tablet
2 mg PO HS
dutasteride [Avodart] 0.5 MG capsule
0.5 mg PO HS
loperamide 2 MG capsule
2 mg PO Q6HPRN PRN (Reason: DIARRHEA)
bicalutamide 50 mg tablet
50 mg PO HS
lisinopril 10 mg tablet
10 mg PO HS
furosemide 20 mg tablet
20 mg PO DAILY@1400
cyclosporine 0.05 % dropperette
1 drp BOTH EYES BID
acetaminophen 325 MG tablet
650 mg PO Q4HPRN PRN (Reason: mild pain)
aspirin 325 MG tablet
325 mg PO HS
Rx Instructions:
Take daily x4 weeks for blood clot prevention
ciprofloxacin HCl 500 mg tablet
500 mg PO Q12H 7 Days Qty: 14 0RF
metronidazole 500 mg tablet
500 mg PO Q12H 5 Days Qty: 10 0RF
nystatin 100,000 unit/mL Suspension
5 ml PO QID Qty: 500 0RF
amlodipine 5 mg Tablet
5 mg PO DAILY 30 Days Qty: 30 0RF
Referrals:
Sinan Horowitz DO [Family Provider, Family Practice]
Interventions
Interventions:
*Risk Screen - Suicide Last Done: 01/20/25 06:19
*General Assessment Last Done: 01/20/25 06:19
*Neglect/Abuse Screening Last Done: 01/20/25 06:19
*ED COVID-19 Vaccine History Last Done: 01/20/25 06:19
*ED Influenza Vaccine History Last Done: 01/20/25 06:19
[facility] Risk Assessment Tool Last Done: 01/20/25 06:03
ED-Psychological Assessment Last Done: 01/20/25 07:43
ED- Neurological Assessment Last Done: 01/20/25 07:43
ED- Cardiac Assessment Last Done: 01/20/25 07:45
ED Swallowing Screen Last Done: 01/20/25 07:43
Discharge Date and Time
Print Language: GERMAN
[2025-01-20 07:44] LABS: Urine Character Clear (Clear)
[2025-01-20 07:56] LABS: Urine Squamous Cell 0-2 /LPF (Few)
[2025-01-20] MEDS: NSS 1000 IV (07:56)
[2025-01-20 07:57] LABS: Urine Red Blood Cell None Seen /HPF (0-2); Urine White Cell None Seen /HPF (0-5)
[2025-01-20 08:28] LABS: COVID-19 Antigen Negative (Negative)
[2025-01-20] MEDS: TYLENOL 1000 MG PO (09:09)
[2025-01-20 09:17] LABS: TSH 2.55 uIU/ml (0.47-4.68)
--- NOTE | 2025-01-20 13:16 | CON.NEURO4 ---
Consultation - Neurology 4
-
CONSULTING PHYSICIAN: Dr. Neeraj Matias
REFERRING PHYSICIAN: Dr. Lakeisha Biswas
DICTATED BY: Dr. Neeraj Matias
DATE/TIME OF REQUEST: 01/20/2025
DATE/TIME OF CONSULTATION: 01/20/2025
Reason for Consultation: Change in mental status
ASSESSMENT AND PLAN:
The patient is an 79 years old male, with a past medical history of hypertension, prostate cancer, hypothyroidism, GERD and history of recent cholecystectomy for gangrenous gallbladder. According to the patient and the patient's son, the patient's
mental status has altered since the surgery, and he presented to the hospital because of flight of ideas and pressured speech. The patient lives in an independent living facility and says that he had auditory hallucinations where he was little
living and he thinks that he has not been able to sleep well. There is no history of dementia and he does not have any suicidal ideation. The patient denies any auditory or visual ideation at this time. The patient says that he feels lonely at
the place where he lives and he keeps thinking about his family. He denies any facial droop, weakness of arms or legs or any gait difficulty. The patient's son was present at the bedside to provide the history.
The patient's immediate and remote memory does not appear to be particularly affected and is he able to carry on a normal conversation, however, he appears to be anxious with a pressured speech and also feels depressed because of being lonely at the
place where his living at in an independent living facility. He does not carry a diagnosis of dementia in the past. His symptoms were precipitated after a recent surgery and he complains of severe sleep deprivation. The patient is able to speak
normally when he is asked to make an effort to speak slowly and clearly. The plan is to get MRI of the brain with and without contrast. There is no reported history of a seizure. He may benefit from an antianxiety medication that will help him
also to sleep better. UA is negative.
Discussed the case with psychiatry.
History of Present Illness:
The patient is an 79 years old male, with a past medical history of hypertension, prostate cancer, hypothyroidism, GERD and history of recent cholecystectomy for gangrenous gallbladder. According to the patient and the patient's son, the patient's
mental status has altered since the surgery, and he presented to the hospital because of flight of ideas and pressured speech. The patient lives in an independent living facility and says that he had auditory hallucinations where he was little
living and he thinks that he has not been able to sleep well. There is no history of dementia and he does not have any suicidal ideation. The patient denies any auditory or visual ideation at this time. The patient says that he feels lonely at
the place where he lives and he keeps thinking about his family. He denies any facial droop, weakness of arms or legs or any gait difficulty. The patient's son was present at the bedside to provide the history.
Past Medical History: Hypertension, prostate cancer, hypothyroidism, GERD. History of recent cholecystectomy for gangrenous gallbladder.
Surgical History: History of recent cholecystectomy for gangrenous gallbladder.
Review of Systems:
The 10 point review systems was negative aside from as given the above history of present illness.
Neurologic Examination:
Alert and oriented x 3,
Speech is clear,
The cranial nerves II through XII are grossly intact,
The visual shepard are grossly full to confrontation,
The motor strength is grossly 5/5 bilaterally,
The sensations are grossly intact,
The cerebellar examination does not show limb ataxia.
Vital Signs and Labs
-
Vital Signs and Labs:
Vital Signs
Temp Pulse Resp BP Pulse Ox
36.6 C 68 18 133/66 98
01/20/25 08:00 01/20/25 13:00 01/20/25 13:00 01/20/25 13:00 01/20/25 13:00
Lab Results
01/20/25 06:25
01/20/25 06:25
Sodium 135 mmol/L (135-145) 01/20/25 06:25
Potassium 5.3 mmol/L (3.5-5.1) H 12/07/25 06:25
BUN 38 mg/dl (9-20) H 01/20/25 06:25
Glucose 113 mg/dl (70-99) H 01/20/25 06:25
Calcium 8.7 mg/dl (8.4-10.2) 01/20/25 06:25
Ur Buprenorphine Negative (Negative) 01/20/25 07:30
Medications
-
Home Medications
�Medication �Instructions �Recorded
doxazosin 2 mg tablet 2 mg PO HS Blood pressure 04/13/20
dutasteride 0.5 mg capsule 0.5 mg PO HS Urinary issue 04/13/20
(Avodart)
bicalutamide 50 mg tablet 50 mg PO HS prostate issue 12/26/24
cyclosporine 0.05 % eye drops in a 1 drp BOTH EYES BID dry eye 12/26/24
dropperette
lisinopril 10 mg tablet 10 mg PO HS Blood Pressure 12/26/24
aspirin 81 mg tablet,delayed 81 mg PO DAILY Blood Clot 01/20/25
release Prevention/Tx
--- NOTE | 2025-01-20 13:43 | HPS.HSE ---
Addendum entered and electronically signed by Venancio Mi MD 01/20/25 14:45:
I personally performed a history and physical exam of the patient and discussed management with the resident. I reviewed the resident's note and agree with the documented findings and plan of care HPI/CC.
79-year-old male with past ministry of hypertension, prostate cancer, recent cholecystectomy for gangrenous gallbladder, umbilical hernia, GERD, hypothyroidism came to the hospital with flight of ideas and pressured speech. Per son at bedside,
symptoms appear to have gotten worse at [facility]. Per patient he did had auditory hallucination the first night he went to independent living. There is also concern the patient might not be sleeping enough. Denies any chest pain, shortness of
breath. Denies any fever, chills. Patient is AO x 3 however speech is very pressured. Denies any history of dementia. Does not have any suicidal ideation. Denies any auditory or visual hallucination at this time. UA, tox screen normal. CT
abdomen. Check MRI brain. Discussed with neurology. Check ammonia. Check VBG. check bladder scan
Acute mental status changes suspect likely secondary to acute delirium
Will need to rule out CVA
Discussed with neurology, CT without hemorrhage. Check MRI
neurochecks
Talk screen, UA negative
CT abdomen given recent surgery
Psychiatry following
History of CKD 3B
Monitor
History of urinary retention, check bladder scan
Per patient he is not on Lasix anymore
BPH
Continue with dutasteride, doxazosin
History of prostate cancer
Mild hyperkalemia
Monitor
Bladder scan
History of hypercarbia
Check VBG
Essential hypertension
Continue lisinopril and doxazosin
Urinary incontinence/BPH
Continue bicalutamide and dutasteride.
Full code
Lovenox
Full code
Discussed with son at bedside. Discussed with neurology
I spent a total of 76 minutes with the patient or on the floor. More than 50% of this time involved counseling and coordination of care.
Original Note:
Family Physician
-
Family Physician: Sinan Horowitz
Chief Complaint
-
Acute mental status changes
History of Present Illness
79-year-old male with recent cholecystectomy 12/27/24 for gangrenous gallbladder presents with acute mental status change started 3 weeks ago couple days after surgery. History obtained from ER note, no family at patient's bedside. Patient is
speaking gibberish, non sensical, flight of ideas, switching from subject to subject but patient is calm, alert, awake, oriented, not harming himself or others. Pt is on independent living facility at [facility].
Patient arrived by ambulance with complaints of feeling ' revved up and freaky'. His son is at the bedside and reports that ever since his father had anesthesia for gallbladder surgery about 3 weeks ago, he has had ' a change in personality' and
appears to have constant ' pressured speech'. Son reports that his father has not stopped speaking. He reports that his father seems to be fixated on certain things, such as the genealogy of the family. Additionally, for the first time his father
had a visual hallucination yesterday. The patient describes seeing a young woman that was an alexus try to kiss him. He denies any auditory hallucinations. He reports he does not feel paranoid and does not feel anybody is after him. He does not
feel that the TV is speaking to him. He is aware that he has been speaking a lot but is unable to control it and admits that it does not really bother him. His son denies any new medication. He denies drug and alcohol use. He reports that his
father always stays up late and sleeps late, and that his sleeping pattern does not seem to have changed. He denies any changes of his diet and reports that if anything he has decreased his caffeine intake. And was recently admitted for gangrenous
gallbladder a few weeks ago and underwent surgery. His son reports that ever since then these changes have occurred.
Work up in the ED negative for infection, electrolyte derangement except K 5.3, normal toxicology screen and UA, head CT unremarkable. Vitals are stable.
Medical History
Past Medical History
Past Medical History: Reports Other (GERD, hypertension, umbilical hernia, hypothyroidism, prostate cancer, BPH , perforated/ gangrenous, acalculous cholecystitis, incarcerated hernia)
Past Surgical History: Reports Other (laparoscopic cholecystectomy, laparoscopic abdominal washout with drain placement and open primary repair incarcerated umbilical hernia)
Social History
Unable to obtain full social history at this time due to: Other (Unable to provide history due to medical condition)
Family History
Family History: Not pertinent
Allergies / Home Medications
Allergies reflects when Allergies were last updated in [facility].
Home Medications with original date entered in [facility]
Allergy/Medication List:
Allergies
Allergy/AdvReac Type Severity Reaction Status Date / Time
amoxicillin (From Augmentin) Allergy Nausea / Verified 12/26/24 16:27
Vomiting
clavulanic acid (From Allergy Nausea / Verified 12/26/24 16:27
Augmentin) Vomiting
Home Medications
doxazosin 2 mg tablet 2 mg PO HS Blood pressure 04/13/20
dutasteride 0.5 mg capsule (Avodart) 0.5 mg PO HS Urinary issue 04/13/20
bicalutamide 50 mg tablet 50 mg PO HS prostate issue 12/26/24
cyclosporine 0.05 % eye drops in a dropperette 1 drp BOTH EYES BID dry eye 12/26/24
lisinopril 10 mg tablet 10 mg PO HS Blood Pressure 12/26/24
aspirin 81 mg tablet,delayed release 81 mg PO DAILY Blood Clot Prevention/Tx 01/20/25
Review of Systems
-
Unable to obtain full review of systems at this time due to: Other (Patient is delirious)
Physical Exam
Vital Signs
Vital Signs
Temp Pulse Resp BP Pulse Ox
97.8 F 68 18 133/66 98
01/20/25 08:00 01/20/25 13:00 01/20/25 13:00 01/20/25 13:00 01/20/25 13:00
Physical Exam
General: Comfortable and Other ( )
HEENT: NormoCephalic and Anicteric
Respiratory: Clear
Cardiac: S1/S2 and Regular Rhythm
GI: Soft, Non Tender and Non Distended
Musculoskeletal: No Edema
Skin: Warm and Dry
Neuro: Awake, Alert and Oriented
Psych: Other (Patient mostly speaking gibberish, non sensical, flight of ideas, switching from subject to subject but patient is calm, alert, awake, oriented, not harming himself or others.)
Laboratory Results
-
01/20/25 06:25
01/20/25 06:25
Laboratory Results
Total Bilirubin 0.5 mg/dl (0.2-1.3) 01/20/25 06:25
AST 19 U/L (17-59) 01/20/25 06:25
ALT 20 U/L (0-50) 01/20/25 06:25
Alkaline Phosphatase 87 U/L (38-126) 01/20/25 06:25
Data Reviewed
-
CT Scan: Report Reviewed by me and Discussed with Physician
Lab Data: Labs Reviewed by me and Discussed with Physician
Impression/Plan
-
IMPRESSION:
Acute mental status change
Hyperkalemia
S/p cholecystectomy for gangrene acalculous cholecystitis
Essential hypertension
Urinary incontinence/BPH
PLAN:
Acute mental status changes
Differential diagnosis: Infection, stroke, medication side effect, toxins(alcohol/opioids/benzo), electrolyte imbalance, hyper/hypoglycemia.
Recent S/p cholecystectomy for gangrene acalculous cholecystitis on 12/27/24
Work up all negative for tox screen, UTI, normal BG.
Head CT unremarkable, no acute pathology
But K is 5.3 slightly elevated---- check bladder scan to r/o urinary retention. Also history of BPH/incontinence
Creatinine 1.8
Trial of Risperdal ?
Check brain MRI without contrast
Check ammonia and magnesium
Check VBG
Consult psychiatry and neurology
Hyperkalemia
Asymptomatic. K 5.3
Check bladder scan to rule out acute urinary retention
Also history of BPH/incontinence
Repeat BMP in am
Essential hypertension
Continue lisinopril and doxazosin
Urinary incontinence/BPH
Continue bicalutamide and dutasteride.
Full code
Lovenox
Regular diet
--- NOTE | 2025-01-20 13:57 | CM ---
Chart reviewed and spoke with patient and son Mehul RN at [facility] at ED bedside
He was at for gallbladder surgery 3 weeks ago
went to [facility] then dc back to his home [facility]
DME coty [facility]gel and w/c
PCP Dr Elvira Horowitz
Pharmacy [facility]
hx of [facility]
DCP to be discussed
Son feels that he has changed since his surgery 'incessant talking'
CM will continue to follow up for any dcp needs
--- NOTE | 2025-01-20 14:01 | CON.MD ---
Addendum entered and electronically signed by Oriana Butts MD 01/20/25 15:57:
Added risperidone 0.25mg BID PRN acute agitation - pt described as increasingly labile and 'not himself', in particular past 3-4 days, would have PRN on board in case of agitation in this context. To be used sparingly for management of agitation in
order to maintain pts safety & safety of staff. Whenever possible pt should be redirected verbally.
Original Note:
Consultation - Medical
-
79 yr old M with PMH of HTN & prostate cancer presenting with change in mental status following surgery for gangrenous gallbladder 3 weeks ago. Pt lives alone in [facility] living, as per son was able to fully care for himself (cooking,
medication, driving etc) prior to 3 weeks ago. Since then pt reported to have had ' a change in personality', described to have logorrhea with rapid speech, labile, impulsive, inappropriate at times. Yesterday pt reported VH of seeing an alexus
trying to kiss him, no AH reported.
On evaluation pt was sleeping very soundly, with loud snoring despite myself and his son speaking in the room. 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 He denies hx
of overt memory issues or changes in personality, however on exploration does report that about 10-15 yrs ago pt became very interested in his geneology, to the point of fixation. Son does report external factors which may explain this, however son
also describes over past several years what sounds like a slow but progressive increase in pt being more quiet and keeping to himself more. Does engage with family still, but will sit to the side by himself quietly. Son does note that this is how pt
has always been to a degree, however based on his description it sounds like this has become particularly more evident in the past 2-3 months. Son also reports that pt stopped driving about a month prior to surgery due to what sounds like slowing of
cognition or confusion. Past 2-3 months described to have been more fixated on unusual subjects, texting family at 3/4AM, making inappropriate or odd comments (present at baseline but also with notable increase in recent months). To note, pt has
expressed to son awareness that he is not himself and is speaking 'a lot', however does not appear bothered by these changes.
As per son, following surgery pt was indeed delirious but seemed to have been improving until about a week ago when mental status began to worsen again, leading to ED presentation today.
No significant prior psychiatric history.
D&A: none significant reported
Unable to perform MSE at this time as pt sleeping very soundly.
1. Suspect delirium though of unclear cause at this time - may be due to recent surgery, though pts improvement followed by worsening may indicate another process as well. Although son denies overt sxs of dementia, after some discussion he was able
to acknowledge that the past 2-3 months there has been a gradual change in the pt in regard to subtle personality changes and cognitive changes (in particular his stopping driving when this seems to have been a point of pride for pt). Son able to
acknowledge that pt is highly intelligent and highly regimented, which can put him at risk of masking dementia until it is more moderate-severe. I do have concerns that pt was developing a dementia prior to these events and the stress of the
surgery/illness unmasked this. Discussed these concerns with son as well, in particular as I would be hesitant to use antipsychotics both due to risk of sudden in the elderly and risk of worsening certain dementia - discussed deferring
antipsychotics for now until this is clarified further.
- discussed these concerns with ED physician who consulted neurology
2. It is also possible that the changes exhibited by the pt in the months prior to surgery were due to a milder delirium in the context of a gangrenous gall bladder. Pt is afebrile, normotensive, WBC wnl - however given his initial improvement in
mental status followed by a notable worsening the past several days, I would r/o any ongoing processes in his abdomen.
- ordered CT abdomen
3. Psychiatry will follow and continue to reassess
[2025-01-20 14:14] LABS: Venous Blood Gas B.E. -2.9 mmol/L (-4 to +4); Venous Blood Gas O2 Sat % 82.3 %
[2025-01-20 14:15] LABS: Venous Blood Gas O2 Therapy 98
[2025-01-20] MEDS: RISPERDAL PO (16:39)
[2025-01-20 17:04] LABS: Ammonia < 9 umol/L (9-30)
[2025-01-20] MEDS: LOVENOX 40 MG SC (19:00)
[2025-01-20 19:32] LABS: Magnesium 2.3 mg/dl (1.6-2.3)
[2025-01-20] MEDS: RESTASIS 0.05% OPHTHALMIC EMULSION 1 DROPS BOTH EYES (20:41)
[2025-01-20] MEDS: CARDURA 2 MG PO (20:41)
[2025-01-20] MEDS: CASODEX 50 MG PO (20:41)
[2025-01-20] MEDS: PROSCAR 5 MG PO (20:42)
[2025-01-20] MEDS: ZESTRIL 10 MG PO (20:42)
[2025-01-20] MEDS: RISPERDAL 0.25 MG PO (20:42)
[2025-01-21 07:27] VITALS: BP 142/67
[2025-01-21] MEDS: RESTASIS 0.05% OPHTHALMIC EMULSION 1 DROPS BOTH EYES ×2 (08:52→19:51)
[2025-01-21] MEDS: ASPIR LOW (ENTERIC COATED) 81 MG PO (08:52)
[2025-01-21] MEDS: HEPARIN 5000 UNITS SC ×2 (08:52→19:50)
[2025-01-21 09:05] LABS: Hematocrit 29.4 % (39.0-52.0); Hemoglobin 9.7 g/dL (13.0-18.0); Mean Corp Hgb Conc. 33.0 g/dL (33.0-37.0); Mean Corpuscular Volume 91.0 fL (80.0-94.0); Nucleated Red Blood Cells % 0 % (-); Platelet Count 171 10^3/uL (130-400); Red Cell Dist. Width 13.2 % (11.5-14.5)
--- NOTE | 2025-01-21 09:13 | W.PN.NEURO.1 ---
Addendum entered and electronically signed by Neeraj Matias MD 01/21/25 19:45:
I saw and examined the patient today along with the nurse practitioner Sarah Marie. I agree with the nurse practitioner Sarah Marie's assessment and management plan. Given below is my addendum.
The patient is an 79 years old male, with a past medical history of hypertension, prostate cancer, hypothyroidism, GERD and history of recent cholecystectomy for gangrenous gallbladder. According to the patient and the patient's son, the patient's
mental status has altered since the surgery, and he presented to the hospital because of flight of ideas and pressured speech.
Today the patient states speech appears to be better and is able to follow verbal commands well. He does not appear to have any gross focal weakness.
The MRI of the brain with and without contrast does not show an acute intracranial abnormality.
The change in patient's mental status could be because of delirium and also he appears to be anxious and depressed. MRI of the brain does not show any structural abnormality. Patient is being followed by psychiatry. Risperidone has been
discontinued by psychiatry. The patient gives a history that he has been sleep deprived prior to admission.
Discussed with Dr. Venancio Mi.
Will sign off. Please call if any question.
Original Note:
Today's Communication / Plan
-
-brain MRI with and without contrast as planned
-continue to see psych, appreciate recommendations
-current LDL 119, start atorvastatin 40 mg for goal LDL<70
Will sign off
Neuro Assessment/Plan
Assessment
The patient is an 79 years old male, with a past medical history of hypertension, prostate cancer, hypothyroidism, GERD and history of recent cholecystectomy for gangrenous gallbladder. According to the patient and the patient's son, the patient's
mental status has altered since the surgery, and he presented to the hospital because of flight of ideas and pressured speech. The patient lives in an independent living facility and says that he had auditory hallucinations where he was little
living and he thinks that he has not been able to sleep well. There is no history of dementia and he does not have any suicidal ideation. The patient denies any auditory or visual ideation at this time. The patient says that he feels lonely at
the place where he lives and he keeps thinking about his family. He denies any facial droop, weakness of arms or legs or any gait difficulty. The patient's son was present at the bedside to provide the history.
Head CT 01/20/2025: no acute intracranial abnormality.
Brain MRI: pending
Labs: Cholesterol 193, LDL 119
Plan
Change in mental status most likely due to anxiety and depression, cannot rule out structural abnormalities and will therefore need to check brain MRI
-brain MRI with and without contrast as planned
-continue to see psych, appreciate recommendations
-current LDL 119, start atorvastatin 40 mg for goal LDL<70
All questions encouraged and answered, plan of care discussed with Dr. Matias and hospitalist
Subjective/Objective
Subjective Data
Date of Service: January 21, 2025
No acute overnight events. Speech improving. Seems to be in good spirits today.
Objective Data
Vital Signs
Temp Pulse Resp BP Pulse Ox
98.4 F 68 20 142/67 98
01/21/25 07:27 01/21/25 07:27 01/21/25 07:27 01/21/25 07:27 01/21/25 07:27
Lab Results
01/21/25 08:14
Sodium 135 mmol/L (135-145) 01/20/25 06:25
Potassium 5.3 mmol/L (3.5-5.1) H 01/20/25 06:25
BUN 38 mg/dl (9-20) H 01/20/25 06:25
Glucose 113 mg/dl (70-99) H 01/20/25 06:25
Calcium 8.7 mg/dl (8.4-10.2) 01/20/25 06:25
Ur Buprenorphine Negative (Negative) 01/20/25 07:30
Patient Allergies
amoxicillin (From Augmentin) Allergy (Verified 12/26/24 16:27)
Nausea / Vomiting
clavulanic acid (From Augmentin) Allergy (Verified 12/26/24 16:27)
Nausea / Vomiting
[2025-01-21 09:54] LABS: Blood Urea Nitrogen 28 mg/dl (9-20); Calcium 8.6 mg/dl (8.4-10.2); Carbon Dioxide 22 mmol/L (22-30); Chloride 108 mmol/L (98-107); Estimated Creatinine Clearance 36 ml/min; Glucose 97 mg/dl (70-99); HDL Cholesterol 48 mg/dl; LDL Cholesterol, Calculated 119 mg/dl; Potassium 4.9 mmol/L (3.5-5.1); Sodium 134 mmol/L (135-145); Very Low Density Lipoprotein 26 mg/dl (0-30); eGFR 43.29
--- NOTE | 2025-01-21 11:34 | W.PN.HOSP.TC ---
Today's Communication/Plan
-
Monitor vital signs see plan
Psychiatry and neurology following
MRI pending
Risperidone per psychiatry
Assessment / Plan
Assessment / Plan
General: Comfortable
HEENT: NormoCephalic and Anicteric
Respiratory: Clear
Cardiac: S1/S2 and Regular Rhythm
GI: Soft, Non Tender and Non Distended
Musculoskeletal: No Edema
Neuro: Awake, Alert and Oriented
Psych: Pressured speech, alert awake oriented
Acute mental status changes suspect likely secondary to acute delirium
Will need to rule out CVA
Discussed with neurology, CT without hemorrhage. Check MRI With and without contrast per neurology
Lack of sleep is also concern
neurochecks
Tox screen, UA negative
CT abdomen Without acute abnormality
Psychiatry following
Ammonia normal
Risperidone per psych
History of CKD 3B
Monitor
History of urinary retention, check bladder scan
Per patient he is not on Lasix anymore
BPH
Continue with dutasteride, doxazosin
History of prostate cancer
Mild hyperkalemia
Monitor
Bladder scan
History of hypercarbia
VBG checked, no hypercarbia
Essential hypertension
Continue lisinopril and doxazosin
Urinary incontinence/BPH
Continue bicalutamide and dutasteride.
Full code
Lovenox
Full code
Anticipated Discharge: Within 24 hours
Subjective/Interval History
-
Date of Service: January 21, 2025
denies pain
Objective Data
-
Labs:
Laboratory Results
01/21/25
08:14
WBC 6.0
Hgb 9.7 L
Hct 29.4 L
Plt Count 171
Sodium 134 L
Potassium 4.9
Chloride 108 H
Carbon Dioxide 22
BUN 28 H
Creatinine 1.6 H
Glucose 97
Calcium 8.6
Vital Signs:
Vital Signs
Temp Pulse Resp BP Pulse Ox
98.4 F 68 20 142/67 98
01/21/25 07:27 01/21/25 07:27 01/21/25 07:27 01/21/25 07:27 01/21/25 07:27
I&O
01/20/25 01/21/25 01/22/25
06:59 06:59 06:59
Intake Total 600 / 600
Output Total 1605 / 1605
Balance -1005 / -1005
--- NOTE | 2025-01-21 11:35 | W.PN.UPDATE ---
Update Note
Progress Note Update
patient seen chart reviewed. discussed with nursing and with dr weinstein. the patient was admitted for mental status change. he was thought to be in a delirium. as the sx are described in the chart he almost seems to have been hypomanic. he had
thought he saw 'an alexus.' he realized there was not really an alexus there and told me he knew people with PD had hallucinations and he hoped he did not have PD. he was very pleasant. he did have an odd manner of speaking sometimes i had a hard
time understanding him. i cannot really describe it . almost like a little pressured...a little staccato but he seemed to be with it rather than 'loopy ' as he put it which is how he described why her was here 'i got a little loopy'. he was able to
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 he
is taking no psych meds. have dc'ed the prn risperdal as i see no need for it at this time. will check in w him tomorrow.
[2025-01-21 15:31] VITALS: BP 138/71
--- NOTE | 2025-01-21 16:05 | CM ---
Addendum entered by Erum Salazar 01/21/25 16:51:
Checking with [facility] if patient can return since he recently was there in the past week. Spoke with admissions. Joy will check with her team and contact CM in AM.
Physician advisor noted that patient does not meet criteria but attending can transition to inpatient if he feels there is an unsafe discharge. Attending requested CM speak with family to discuss in-home options with family support. Patient lives
alone in [facility]. Spoke with son. Will discuss further after hearing back from [facility] admissions.
Original Note:
Psych and Neuro following. Patient is OBS status. Therapy recommending SNF. Needs 3 night inpatient stay with Medicare. If doesn't meet inpatient criteria will need in home services. Attending recommended having physician advisor review case for
possible inpatient. Physician Advisor notified.
[2025-01-21] MEDS: LIPITOR 40 MG PO (18:23)
[2025-01-21] MEDS: CASODEX 50 MG PO (21:09)
[2025-01-21] MEDS: PROSCAR 5 MG PO (21:09)
[2025-01-21] MEDS: ZESTRIL 10 MG PO (21:13)
[2025-01-21] MEDS: CARDURA 2 MG PO (21:14)
[2025-01-21 23:06] VITALS: BP 121/72
[2025-01-22 07:58] VITALS: BP 135/74
[2025-01-22 08:00] LABS: Blood Urea Nitrogen 26 mg/dl (9-20); Calcium 8.6 mg/dl (8.4-10.2); Carbon Dioxide 23 mmol/L (22-30); Chloride 106 mmol/L (98-107); Estimated Creatinine Clearance 34 ml/min; Glucose 102 mg/dl (70-99); Potassium 4.9 mmol/L (3.5-5.1); Sodium 132 mmol/L (135-145); eGFR 40.25
[2025-01-22 08:05] LABS: Hematocrit 29.9 % (39.0-52.0); Hemoglobin 9.9 g/dL (13.0-18.0); Mean Corp Hgb Conc. 33.1 g/dL (33.0-37.0); Mean Corpuscular Volume 89.8 fL (80.0-94.0); Nucleated Red Blood Cells % 0 % (-); Platelet Count 175 10^3/uL (130-400); Red Cell Dist. Width 13.3 % (11.5-14.5)
[2025-01-22] MEDS: HEPARIN 5000 UNITS SC ×2 (08:37→20:14)
[2025-01-22] MEDS: RESTASIS 0.05% OPHTHALMIC EMULSION 1 DROPS BOTH EYES ×2 (08:38→20:14)
[2025-01-22] MEDS: ASPIR LOW (ENTERIC COATED) 81 MG PO (08:38)
--- NOTE | 2025-01-22 12:14 | W.PN.UPDATE ---
Update Note
Progress Note Update
patient seen chart reviewed. case discussed with nursing and with dr weinstein. the patient continues to improve vis a vis sensorium. he is fully oriented and able to carry on a reasonable conversation although his speech is still pressured and at
times difficult to understand. he remains a little bit tangential but not to the extent that i would put him on a psychotropic medication as i am concerned this would cause more problems than it solves. i am not convinced this is psychiatric.
rather i wonder if there is some neurologic phenomenon as yet to be elucidated. will check in with him tomorrow.
--- NOTE | 2025-01-22 12:27 | W.PN.HOSP.TC ---
Today's Communication/Plan
-
Monitor vitals
See plan
Pressured speech appears to be improving
Start gentle hydration
Monitor renal function
Hopeful discharge soon to SNF
Discussed with son
Assessment / Plan
Assessment / Plan
General: Comfortable
HEENT: NormoCephalic and Anicteric
Respiratory: Clear
Cardiac: S1/S2 and Regular Rhythm
GI: Soft, Non Tender and Non Distended
Musculoskeletal: No Edema
Neuro: Awake, Alert and Oriented
Psych: Pressured speech, alert awake oriented
Acute mental status changes suspect likely secondary to acute delirium
Discussed with neurology, CT without hemorrhage. 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 Per neurology continue with aspirin and statin.
Lack of sleep is also concern
neurochecks
Tox screen, UA negative
CT abdomen Without acute abnormality
Psychiatry following
Ammonia normal
Risperidone was stopped per psychiatry due to side effects. Psychiatry does not think any medication is needed at this time.
History of CKD 3B
renal insufficiency, start gentle fluid. Monitor
Monitor
History of urinary retention, check bladder scan
Per patient he is not on Lasix anymore
BPH
Continue with dutasteride, doxazosin
History of prostate cancer
Anemia of chronic disease
Monitor
Hyponatremia
Monitor
Mild hyperkalemia
Monitor
Bladder scan
History of hypercarbia
VBG checked, no hypercarbia
Essential hypertension
Continue lisinopril and doxazosin
Urinary incontinence/BPH
Continue bicalutamide and dutasteride.
Full code
Lovenox
Full code
Anticipated Discharge: Within 24 hours
Subjective/Interval History
-
Date of Service: January 22, 2025
Still has pressured speech but improving
Objective Data
-
Labs:
Laboratory Results
01/22/25
06:48
WBC 6.5
Hgb 9.9 L
Hct 29.9 L
Plt Count 175
Sodium 132 L
Potassium 4.9
Chloride 106
Carbon Dioxide 23
BUN 26 H
Creatinine 1.7 H
Glucose 102 H
Calcium 8.6
Vital Signs:
Vital Signs
Temp Pulse Resp BP Pulse Ox
97.9 F 74 18 135/74 98
01/22/25 07:58 01/22/25 07:58 01/22/25 07:58 01/22/25 07:58 01/22/25 07:58
I&O
01/21/25 01/22/25 01/23/25
06:59 06:59 06:59
Intake Total 600 / 600 1740 / 1740
Output Total 1605 / 1605 1800 / 1800
Balance -1005 / -1005 -60 / -60
[2025-01-22] MEDS: NSS 1000 IV (13:12)
--- NOTE | 2025-01-22 14:37 | CM ---
Addendum entered by Erum Salazar 01/22/25 15:27:
Son aware of below.
Original Note:
Patient on OBS status and Medicare, therapy rec for SNF. Recent SNF admission and discharge at [facility]. [facility] checked and patient can be readmitted under last Medicare admission. Attending rodrick Hamilton is contact at [facility] @
[phone]. Transport forms completed but time not scheduled. On chart. IMM completed and on chart.
Nurse to Nurse Report # [phone]
Fax #: [phone]
[2025-01-22 15:15] VITALS: BP 123/67
[2025-01-22] MEDS: LIPITOR 40 MG PO (18:36)
[2025-01-22] MEDS: CARDURA 2 MG PO (21:37)
[2025-01-22] MEDS: MELATONIN 5 MG PO (21:38)
[2025-01-22] MEDS: PROSCAR 5 MG PO (21:38)
[2025-01-22] MEDS: CASODEX 50 MG PO (21:38)
[2025-01-22 23:00] VITALS: BP 134/70
[2025-01-23] MEDS: NSS 1000 IV (06:27)
[2025-01-23 06:51] LABS: Hematocrit 27.9 % (39.0-52.0); Hemoglobin 9.5 g/dL (13.0-18.0); Mean Corp Hgb Conc. 34.1 g/dL (33.0-37.0); Mean Corpuscular Volume 90.3 fL (80.0-94.0); Platelet Count 162 10^3/uL (130-400); Red Cell Dist. Width 13.4 % (11.5-14.5)
[2025-01-23 07:00] VITALS: BP 133/68
[2025-01-23 07:07] LABS: Blood Urea Nitrogen 26 mg/dl (9-20); Calcium 8.3 mg/dl (8.4-10.2); Carbon Dioxide 21 mmol/L (22-30); Chloride 108 mmol/L (98-107); Estimated Creatinine Clearance 34 ml/min; Glucose 122 mg/dl (70-99); Potassium 5.1 mmol/L (3.5-5.1); Sodium 133 mmol/L (135-145); eGFR 40.25
[2025-01-23] MEDS: ASPIR LOW (ENTERIC COATED) 81 MG PO (09:01)
[2025-01-23] MEDS: RESTASIS 0.05% OPHTHALMIC EMULSION 1 DROPS BOTH EYES (09:01)
[2025-01-23] MEDS: HEPARIN 5000 UNITS SC (09:01)
--- NOTE | 2025-01-23 09:35 | CM ---
Addendum entered by Rocío Dow 01/23/25 09:51:
Patient able to go to [facility] per Admissions Liaison Joy; today pending physician assessment; Please call report to [phone]/fax [phone]. Patient will need ambulance for transportation; CM will complete forms and place on chart.
Original Note:
Patient seen at bedside and reviewed patient status as OBS/IVERSON. CM provided form and patient requested that CM call his son Jose and review OBS status with him. Patient son indicated that he was aware of patient status but did not know what it
would mean in terms of cost; patient son to call insurance and confirm patient costs. CM will continue to follow for dicharge planning needs.
Plan; [facility] when patient medically appropriate per physician
--- NOTE | 2025-01-23 10:50 | W.PN.HOSP.TC ---
Addendum entered and electronically signed by Venancio Mi MD 01/23/25 10:58:
Discussed with son
Addendum entered and electronically signed by Venancio Mi MD 01/23/25 10:57:
Hold lisinopril on discharge. Restart when blood pressure greater than 140/90.
Original Note:
Today's Communication/Plan
-
Monitor vitals
See plan
Discharge today to [facility]
Time of discharge 36 minutes
Assessment / Plan
Assessment / Plan
General: Comfortable
HEENT: NormoCephalic and Anicteric
Respiratory: Clear
Cardiac: S1/S2 and Regular Rhythm
GI: Soft, Non Tender and Non Distended
Musculoskeletal: No Edema
Neuro: Awake, Alert and Oriented
Psych: Pressured speech, alert awake oriented
Acute mental status changes suspect likely secondary to acute delirium
Symptoms improving
Discussed with neurology, CT without hemorrhage. 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 Per neurology continue with aspirin and statin.
Lack of sleep is also concern
neurochecks
Tox screen, UA negative
CT abdomen Without acute abnormality
Psychiatry following
Ammonia normal
Risperidone was stopped per psychiatry due to side effects. Psychiatry does not think any medication is needed at this time.
History of CKD 3B
renal insufficiency, started gentle fluid. Stop further fluids. Monitor
Monitor
History of urinary retention, check bladder scan
Per patient he is not on Lasix anymore
BPH
Continue with dutasteride, doxazosin
History of prostate cancer
Anemia of chronic disease
Monitor
Hyponatremia
Monitor
Mild hyperkalemia
Monitor
Bladder scan
History of hypercarbia
VBG checked, no hypercarbia
Essential hypertension
Continue lisinopril and doxazosin
Urinary incontinence/BPH
Continue bicalutamide and dutasteride.
Full code
Lovenox
Full code
Anticipated Discharge: Today
Subjective/Interval History
-
Date of Service: January 23, 2025
Denies pain
Objective Data
-
Labs:
Laboratory Results
01/23/25
06:29
WBC 7.9
Hgb 9.5 L
Hct 27.9 L
Plt Count 162
Sodium 133 L
Potassium 5.1
Chloride 108 H
Carbon Dioxide 21 L
BUN 26 H
Creatinine 1.7 H
Glucose 122 H
Calcium 8.3 L
Vital Signs:
Vital Signs
Temp Pulse Resp BP Pulse Ox
97.4 F 69 16 133/68 99
01/23/25 07:00 01/23/25 07:00 01/23/25 07:00 01/23/25 07:00 01/23/25 10:00
I&O
01/22/25 01/23/25 01/24/25
06:59 06:59 06:59
Intake Total 1740 / 1740 1919 / 1920
Output Total 1800 / 1800 1000 / 1000
Balance -60 / -60 920 / 920
--- NOTE | 2025-01-23 10:57 | W.DCSUMMARY ---
Discharge Summary
Discharge Data
Date of Admission: 01/20/25
Date of Discharge: 01/23/25
-
Pending Results: No
Hospital Course
79-year-old male with past medical history of CKD stage IIIb, BPH, prostate cancer, anemia of chronic disease, history of hypercarbia, essential hypertension, urinary incontinence/BPH, recent cholecystectomy for gangrenous gallbladder came to the
hospital with worsening mental status. Patient symptoms were likely thought was secondary to possible ongoing delirium. Patient was seen by neurology and psychiatry. MRI was done which showed old CVA which was discussed with patient and family.
Patient was kept on aspirin and statin. Neurology recommended patient to follow-up with them outpatient. Psychiatry initially added antipsychotic however it appeared patient would have higher side effect profile so it was discontinued. Patient
symptoms continue to improve over time. Patient was also evaluated by physical therapy who recommended SNF. Once her symptoms continue to improve, he was then discharged to rehab with instructions to follow-up with all his physicians outpatient.
Discharge Plan
-
Patient Disposition: Custodial/SNF
Discharge Diagnosis/Procedures: Acute mental status change suspect likely secondary to acute delirium
Renal insufficiency
Sleep deprivation
Condition: Fair
Diet: As tolerated
Activity: With assistance and As tolerated
Driving Restrictions: As prior to admission
Bathing Restrictions: None
Blood Work: BMP later this week at rehab
Referrals:
Neeraj Matias MD [Active, Neurology]
Oriana Butts MD [Active, Psychiatry]
Sinan Horowitz DO [Family Provider, Family Practice] - in less than 1 week
Prescriptions:
New
melatonin 5 mg Tablet
5 mg PO HS Qty: 0 0RF
Continued
doxazosin 2 MG tablet
2 mg PO HS
dutasteride [Avodart] 0.5 MG capsule
0.5 mg PO HS
bicalutamide 50 mg tablet
50 mg PO HS
cyclosporine 0.05 % dropperette
1 drp BOTH EYES BID
aspirin 81 mg Tablet,Delayed Release (Dr/Ec)
81 mg PO DAILY
Held
lisinopril 10 mg tablet
10 mg PO HS
Hold Instructions: Restart when blood pressure is greater than 140/90
Discharge Orders:
Discharge Patient (As Directed); Ordered 01/23/25
Ordered By: Venancio Mi
Discharge Date and Time
Discharge Date/Time: 01/23/25 15:46
Print Language: TURKISH
--- NOTE | 2025-01-23 11:44 | W.PN.UPDATE ---
Update Note
Progress Note Update
patient seen chart reviewed. discussed with nursing. mr meyer continues to be very pleasant. he has a wealth of knowledge on a number of topics which he seems to like to share. he is currently preoccupied with getting his family to know exactly
what is going on with him. his birthday is tomorrow as well. he does continue w pressured speech and is quite circumstantial and tangential at times. he has a hard time stopping talking. this is not the norm i understand. he has NO hx of nga or
psychosis and he is not psychotic now. i continue to think this has to do with neurology and likely neuro thinks it is psychiatric. he says he is sleeping well at this point. he does not seem otherwise hyperactive. i have felt that psych meds
would cause more problems than they solve and continue to feel that way. he is going to go to snf level of care at [facility] in the near future. he thinks maybe today. would just monitor how he does at this point.
[2025-01-23 15:47] VITALS: BP 131/70
== END 2025-01-23 15:46 ==
LOC: 2 NORTH 14:00
PROVIDERS: Student in an Organized Health Care Education/Training Program; ADMITTING PHYSICIAN Internal Medicine; CONSULT PHYSICIAN Psychiatry & Neurology Neurology; CONSULT PHYSICIAN Psychiatry & Neurology Psychiatry; EMERGENCY PHYSICIAN Emergency Medicine; FAMILY PHYSICIAN Family Medicine
DX: R41.82 Altered mental status, unspecified (principal); Z72.820 Sleep deprivation; E03.9 Hypothyroidism, unspecified; K21.9 Gastro-esophageal reflux disease without esophagitis; N18.32 Chronic kidney disease, stage 3b; I12.9 Hypertensive chronic kidney disease with stage 1 through stage 4 chronic kidney disease, or unspecified chronic kidney disease; N39.498 Other specified urinary incontinence; N40.1 Benign prostatic hyperplasia with lower urinary tract symptoms; Z85.46 Personal history of malignant neoplasm of prostate; E87.5 Hyperkalemia; Z88.0 Allergy status to penicillin; Z79.82 Long term (current) use of aspirin; Z90.49 Acquired absence of other specified parts of digestive tract; Z86.73 Personal history of transient ischemic attack (TIA), and cerebral infarction without residual deficits; D63.1 Anemia in chronic kidney disease; E87.1 Hypo-osmolality and hyponatremia; Z87.891 Personal history of nicotine dependence
CPT/HCPCS: 70450; 70553; 74176; 80048; 80053; 80061; 80306; 81003; 81015; 82077; 82140; 82805; 83735; 84443; 85025; 85027; 87502; 87811; 93005; 96360; 97110; 97116; 97163; 99285; A9575; G0378

== ENCOUNTER → 2025-01-28 11:17 | Outpatient (REF) | payer OTHER, MEDICARE, BC, SELFPAY ==
[2025-01-28 12:15] LABS: Hematocrit 32.9 % (39.0-52.0); Hemoglobin 10.6 g/dL (13.0-18.0); Mean Corp Hgb Conc. 32.2 g/dL (33.0-37.0); Mean Corpuscular Volume 92.4 fL (80.0-94.0); Platelet Count 180 10^3/uL (130-400); Red Cell Dist. Width 13.4 % (11.5-14.5)
[2025-01-28 12:22] LABS: ALT (SGPT) 20 U/L (0-50); AST (SGOT) 19 U/L (17-59); Albumin 3.9 g/dl (3.5-5.0); Alkaline Phosphatase 95 U/L (38-126); Blood Urea Nitrogen 29 mg/dl (9-20); Calcium 8.8 mg/dl (8.4-10.2); Carbon Dioxide 23 mmol/L (22-30); Chloride 104 mmol/L (98-107); Glucose 114 mg/dl (70-99); Magnesium 2.1 mg/dl (1.6-2.3); Potassium 4.7 mmol/L (3.5-5.1); Sodium 133 mmol/L (135-145); Total Protein 7.1 g/dl (6.3-8.2); eGFR 46.48
== END ==
LOC: OLABWHC 11:17
PROVIDERS: ATTENDING PHYSICIAN Family Medicine
DX: I10 Essential (primary) hypertension (principal); C61 Malignant neoplasm of prostate; K81.0 Acute cholecystitis; N18.9 Chronic kidney disease, unspecified; D62 Acute posthemorrhagic anemia; E87.1 Hypo-osmolality and hyponatremia
CPT/HCPCS: 36415; 80053; 83735; 85027